=== PATIENT | female | born 1955 | race Caucasian/White ===

== ENCOUNTER → 2023-12-25 | Outpatient (CLI) | payer MEDICARE, OTHER, SELFPAY ==
[2023-12-25 14:22] LABS: Basophils # (Auto) 0.1 Thou/mm3 (0.0-0.2); Basophils % (Auto) 1 % (0-2.5); Eosinophils # (Auto) 0.1 Thou/mm3 (0.0-0.5); Eosinophils % (Auto) 2 % (0-10); Hematocrit 38.5 % (36.0-46.0); Hemoglobin 12.7 g/dL (12.0-16.0); Immature Granulocytes % (Auto) 0 % (0-0); Immature Granulocytes Auto 0.02 Thou/mm3 (0.00-0.00); Lymphocytes # (Auto) 1.7 Thou/mm3 (1.0-4.8); Lymphocytes % (Auto) 36 % (10-50); Mean Corpuscular Hemoglobin 28.1 pg (25.0-35.0); Mean Corpuscular Volume 85 fL (80-100); Monocytes # (Auto) 0.3 Thou/mm3 (0.0-0.8); Monocytes % (Auto) 7 % (0-12); Neutrophils # (Auto) 2.5 Thou/mm3 (1.8-7.7); Neutrophils % (Auto) 54 % (37-80); Nucleated Red Blood Cell % 0 /100 WBC (0); Platelet Count 254 Thou/mm3 (140-440); Red Blood Count 4.52 Miln/mm3 (4.00-5.20); White Blood Count 4.7 Thou/mm3 (3.6-11.0)
[2023-12-25 14:32] LABS: Alanine Aminotransferase 15 U/L (10-49); Albumin, Serum 4.7 gm/dL (3.4-4.8); Albumin/Globulin Ratio 1.7 (1.2-2.2); Alkaline Phosphatase 81 U/L (46-116); Anion Gap 5 (7-16); Aspartate Amino Transferase 13 U/L (0-34); BUN/Creatinine Ratio 27 Ratio (12-20); Bilirubin,Total 0.4 mg/dL (0.3-1.2); Blood Urea Nitrogen 19 mg/dL (9-23); Calcium 9.9 mg/dL (8.3-10.6); Calcium (Corrected) 9.9 mg/dL (8.5-10.1); Carbon Dioxide 28.7 mMol/L (20.0-31.0); Chloride 104 mMol/L (98-107); Creatinine (Component) 0.7 mg/dL (0.6-1.3); Globulin 2.7 gm/dL (2.3-3.5); Glucose 111 mg/dL (74-106); Osmolality,Calculated 278 (275-295); Potassium 3.9 mMol/L (3.4-5.1); Sodium 138 mMol/L (136-145); Total Protein 7.4 gm/dL (5.7-8.2); eGFR > 60 See Note
== END | disposition home or self-care (01) ==
LOC: COPL 13:18
PROVIDERS: PCP Family Medicine; Referring Provider Specialist; Visit Provider Specialist
DX: C18.7 Malignant neoplasm of sigmoid colon (principal); Z51.11 Encounter for antineoplastic chemotherapy
CPT/HCPCS: 36415; 80053; 82378; 85025

== ENCOUNTER → 2024-01-25 | Outpatient (CLI) | payer MEDICARE, OTHER, SELFPAY ==
[2024-01-25 14:53] LABS: Basophils # (Auto) 0.1 Thou/mm3 (0.0-0.2); Basophils % (Auto) 1 % (0-2.5); Eosinophils # (Auto) 0.2 Thou/mm3 (0.0-0.5); Eosinophils % (Auto) 3 % (0-10); Hematocrit 40.3 % (36.0-46.0); Hemoglobin 13.3 g/dL (12.0-16.0); Immature Granulocytes % (Auto) 1 % (0-0); Immature Granulocytes Auto 0.06 Thou/mm3 (0.00-0.00); Lymphocytes # (Auto) 2.2 Thou/mm3 (1.0-4.8); Lymphocytes % (Auto) 38 % (10-50); Mean Corpuscular Hemoglobin 28.8 pg (25.0-35.0); Mean Corpuscular Volume 87 fL (80-100); Monocytes # (Auto) 0.5 Thou/mm3 (0.0-0.8); Monocytes % (Auto) 8 % (0-12); Neutrophils # (Auto) 2.7 Thou/mm3 (1.8-7.7); Neutrophils % (Auto) 49 % (37-80); Nucleated Red Blood Cell % 0 /100 WBC (0); Platelet Count 218 Thou/mm3 (140-440); RDW Standard Deviation 47.6 fL (36.4-46.3); Red Blood Count 4.62 Miln/mm3 (4.00-5.20); White Blood Count 5.6 Thou/mm3 (3.6-11.0)
[2024-01-25 15:02] LABS: Carcinoembryonic Antigen 0.9 ng/mL (0.0-5.0)
[2024-01-25 15:03] LABS: Alanine Aminotransferase 18 U/L (10-49); Albumin, Serum 4.8 gm/dL (3.4-4.8); Albumin/Globulin Ratio 1.7 (1.2-2.2); Alkaline Phosphatase 85 U/L (46-116); Anion Gap 10 (7-16); Aspartate Amino Transferase 17 U/L (0-34); BUN/Creatinine Ratio 16 Ratio (12-20); Bilirubin,Total 0.4 mg/dL (0.3-1.2); Blood Urea Nitrogen 13 mg/dL (9-23); Calcium 9.9 mg/dL (8.3-10.6); Calcium (Corrected) 9.9 mg/dL (8.5-10.1); Carbon Dioxide 25.9 mMol/L (20.0-31.0); Chloride 104 mMol/L (98-107); Creatinine (Component) 0.8 mg/dL (0.6-1.3); Globulin 2.8 gm/dL (2.3-3.5); Glucose 83 mg/dL (74-106); Osmolality,Calculated 278 (275-295); Sodium 140 mMol/L (136-145); Total Protein 7.6 gm/dL (5.7-8.2); eGFR > 60 See Note
== END | disposition home or self-care (01) ==
LOC: COPL 13:30
PROVIDERS: PCP Family Medicine; Referring Provider Specialist; Visit Provider Specialist
DX: C18.7 Malignant neoplasm of sigmoid colon (principal); Z51.11 Encounter for antineoplastic chemotherapy
CPT/HCPCS: 36415; 80053; 82378; 85025

== ENCOUNTER → 2024-02-19 | Outpatient (CLI) | payer MEDICARE, OTHER, SELFPAY ==
[2024-02-19 11:30] LABS: Basophils # (Auto) 0.1 Thou/mm3 (0.0-0.2); Basophils % (Auto) 1 % (0-2.5); Eosinophils # (Auto) 0.1 Thou/mm3 (0.0-0.5); Eosinophils % (Auto) 2 % (0-10); Hematocrit 40.5 % (36.0-46.0); Hemoglobin 13.4 g/dL (12.0-16.0); Immature Granulocytes % (Auto) 1 % (0-0); Immature Granulocytes Auto 0.03 Thou/mm3 (0.00-0.00); Lymphocytes # (Auto) 2.3 Thou/mm3 (1.0-4.8); Lymphocytes % (Auto) 45 % (10-50); Mean Corpuscular HGB Conc 33.1 g/dl (31.0-37.0); Mean Corpuscular Hemoglobin 29.5 pg (25.0-35.0); Mean Corpuscular Volume 89 fL (80-100); Monocytes # (Auto) 0.4 Thou/mm3 (0.0-0.8); Monocytes % (Auto) 8 % (0-12); Neutrophils # (Auto) 2.2 Thou/mm3 (1.8-7.7); Neutrophils % (Auto) 44 % (37-80); Nucleated Red Blood Cell % 0 /100 WBC (0); Platelet Count 221 Thou/mm3 (140-440); RDW Standard Deviation 46.1 fL (36.4-46.3); Red Blood Count 4.54 Miln/mm3 (4.00-5.20); White Blood Count 5.1 Thou/mm3 (3.6-11.0)
[2024-02-19 11:56] LABS: Alanine Aminotransferase 21 U/L (10-49); Albumin, Serum 4.8 gm/dL (3.4-4.8); Albumin/Globulin Ratio 1.8 (1.2-2.2); Alkaline Phosphatase 85 U/L (46-116); Anion Gap 6 (7-16); Aspartate Amino Transferase 19 U/L (0-34); BUN/Creatinine Ratio 20 Ratio (12-20); Bilirubin,Total 0.3 mg/dL (0.3-1.2); Blood Urea Nitrogen 16 mg/dL (9-23); Calcium 9.9 mg/dL (8.3-10.6); Calcium (Corrected) 9.9 mg/dL (8.5-10.1); Carbon Dioxide 24.8 mMol/L (20.0-31.0); Chloride 108 mMol/L (98-107); Creatinine (Component) 0.8 mg/dL (0.6-1.3); Globulin 2.7 gm/dL (2.3-3.5); Glucose 96 mg/dL (74-106); Osmolality,Calculated 278 (275-295); Potassium 4.4 mMol/L (3.4-5.1); Sodium 139 mMol/L (136-145); Total Protein 7.5 gm/dL (5.7-8.2); eGFR > 60 See Note
[2024-02-19 12:01] LABS: Carcinoembryonic Antigen 0.7 ng/mL (0.0-5.0)
== END | disposition home or self-care (01) ==
LOC: COPL 10:45
PROVIDERS: PCP Family Medicine; Referring Provider Specialist; Visit Provider Specialist
DX: C18.7 Malignant neoplasm of sigmoid colon (principal); Z51.11 Encounter for antineoplastic chemotherapy
CPT/HCPCS: 36415; 80053; 82378; 85025

== ENCOUNTER → 2024-03-18 | Outpatient (CLI) | payer MEDICARE, OTHER, SELFPAY ==
[2024-03-18 11:24] LABS: Basophils # (Auto) 0.1 Thou/mm3 (0.0-0.2); Basophils % (Auto) 1 % (0-2.5); Eosinophils # (Auto) 0.1 Thou/mm3 (0.0-0.5); Eosinophils % (Auto) 2 % (0-10); Hematocrit 39.7 % (36.0-46.0); Hemoglobin 13.2 g/dL (12.0-16.0); Immature Granulocytes % (Auto) 0 % (0-0); Immature Granulocytes Auto 0.02 Thou/mm3 (0.00-0.00); Lymphocytes # (Auto) 1.9 Thou/mm3 (1.0-4.8); Lymphocytes % (Auto) 33 % (10-50); Mean Corpuscular HGB Conc 33.2 g/dl (31.0-37.0); Mean Corpuscular Hemoglobin 29.6 pg (25.0-35.0); Mean Corpuscular Volume 89 fL (80-100); Monocytes # (Auto) 0.5 Thou/mm3 (0.0-0.8); Monocytes % (Auto) 8 % (0-12); Neutrophils # (Auto) 3.2 Thou/mm3 (1.8-7.7); Neutrophils % (Auto) 56 % (37-80); Nucleated Red Blood Cell % 0 /100 WBC (0); Platelet Count 310 Thou/mm3 (140-440); RDW Standard Deviation 45.2 fL (36.4-46.3); Red Blood Count 4.46 Miln/mm3 (4.00-5.20); White Blood Count 5.8 Thou/mm3 (3.6-11.0)
[2024-03-18 11:28] LABS: Carcinoembryonic Antigen 0.9 ng/mL (0.0-5.0)
[2024-03-18 11:37] LABS: Alanine Aminotransferase 26 U/L (10-49); Albumin, Serum 4.9 gm/dL (3.4-4.8); Albumin/Globulin Ratio 1.8 (1.2-2.2); Alkaline Phosphatase 100 U/L (46-116); Anion Gap 8 (7-16); Aspartate Amino Transferase 18 U/L (0-34); BUN/Creatinine Ratio 24 Ratio (12-20); Bilirubin,Total 0.4 mg/dL (0.3-1.2); Blood Urea Nitrogen 19 mg/dL (9-23); Calcium 10.2 mg/dL (8.3-10.6); Calcium (Corrected) 10.2 mg/dL (8.5-10.1); Carbon Dioxide 27.4 mMol/L (20.0-31.0); Chloride 104 mMol/L (98-107); Creatinine (Component) 0.8 mg/dL (0.6-1.3); Globulin 2.8 gm/dL (2.3-3.5); Glucose 92 mg/dL (74-106); Osmolality,Calculated 279 (275-295); Potassium 4.4 mMol/L (3.4-5.1); Sodium 139 mMol/L (136-145); Total Protein 7.7 gm/dL (5.7-8.2); eGFR > 60 See Note
== END | disposition home or self-care (01) ==
LOC: COPL 10:33
PROVIDERS: PCP Family Medicine; Referring Provider Specialist; Visit Provider Specialist
DX: C18.7 Malignant neoplasm of sigmoid colon (principal); Z51.11 Encounter for antineoplastic chemotherapy
CPT/HCPCS: 36415; 80053; 82378; 85025

== ENCOUNTER → 2024-04-08 | Outpatient (CLI) | payer MEDICARE, OTHER, SELFPAY ==
[2024-04-08 17:33] LABS: Basophils # (Auto) 0.1 Thou/mm3 (0.0-0.2); Basophils % (Auto) 1 % (0-2.5); Eosinophils # (Auto) 0.1 Thou/mm3 (0.0-0.5); Eosinophils % (Auto) 2 % (0-10); Hematocrit 38.3 % (36.0-46.0); Hemoglobin 12.8 g/dL (12.0-16.0); Immature Granulocytes % (Auto) 1 % (0-0); Immature Granulocytes Auto 0.05 Thou/mm3 (0.00-0.00); Lymphocytes % (Auto) 29 % (10-50); Mean Corpuscular HGB Conc 33.4 g/dl (31.0-37.0); Mean Corpuscular Hemoglobin 29.4 pg (25.0-35.0); Mean Corpuscular Volume 88 fL (80-100); Monocytes # (Auto) 0.4 Thou/mm3 (0.0-0.8); Monocytes % (Auto) 6 % (0-12); Neutrophils # (Auto) 4.3 Thou/mm3 (1.8-7.7); Neutrophils % (Auto) 63 % (37-80); Nucleated Red Blood Cell % 0 /100 WBC (0); Platelet Count 190 Thou/mm3 (140-440); RDW Standard Deviation 44.9 fL (36.4-46.3); Red Blood Count 4.35 Miln/mm3 (4.00-5.20); White Blood Count 6.8 Thou/mm3 (3.6-11.0)
[2024-04-08 17:47] LABS: Carcinoembryonic Antigen < 0.5 ng/mL (0.0-5.0)
[2024-04-08 17:50] LABS: Alanine Aminotransferase 29 U/L (10-49); Albumin, Serum 4.5 gm/dL (3.4-4.8); Albumin/Globulin Ratio 1.7 (1.2-2.2); Alkaline Phosphatase 109 U/L (46-116); Anion Gap 10 (7-16); Aspartate Amino Transferase 24 U/L (0-34); BUN/Creatinine Ratio 19 Ratio (12-20); Bilirubin,Total 0.3 mg/dL (0.3-1.2); Blood Urea Nitrogen 15 mg/dL (9-23); Carbon Dioxide 25.2 mMol/L (20.0-31.0); Chloride 108 mMol/L (98-107); Creatinine (Component) 0.8 mg/dL (0.6-1.3); Globulin 2.7 gm/dL (2.3-3.5); Glucose 86 mg/dL (74-106); Osmolality,Calculated 284 (275-295); Potassium 4.5 mMol/L (3.4-5.1); Sodium 143 mMol/L (136-145); Total Protein 7.2 gm/dL (5.7-8.2); eGFR > 60 See Note
== END | disposition home or self-care (01) ==
LOC: COPL 16:33
PROVIDERS: PCP Family Medicine; Referring Provider Specialist; Visit Provider Specialist
DX: C18.7 Malignant neoplasm of sigmoid colon (principal)
CPT/HCPCS: 36415; 80053; 82378; 85025

== ENCOUNTER → 2024-05-06 | Outpatient (CLI) | payer MEDICARE, OTHER, SELFPAY ==
[2024-05-06 12:01] LABS: Basophils # (Auto) 0.1 Thou/mm3 (0.0-0.2); Basophils % (Auto) 1 % (0-2.5); Eosinophils # (Auto) 0.2 Thou/mm3 (0.0-0.5); Eosinophils % (Auto) 2 % (0-10); Hematocrit 40.4 % (36.0-46.0); Hemoglobin 13.3 g/dL (12.0-16.0); Immature Granulocytes % (Auto) 0 % (0-0); Immature Granulocytes Auto 0.02 Thou/mm3 (0.00-0.00); Lymphocytes # (Auto) 2.1 Thou/mm3 (1.0-4.8); Lymphocytes % (Auto) 34 % (10-50); Mean Corpuscular HGB Conc 32.9 g/dl (31.0-37.0); Mean Corpuscular Hemoglobin 29.7 pg (25.0-35.0); Mean Corpuscular Volume 90 fL (80-100); Monocytes # (Auto) 0.5 Thou/mm3 (0.0-0.8); Monocytes % (Auto) 8 % (0-12); Neutrophils # (Auto) 3.4 Thou/mm3 (1.8-7.7); Neutrophils % (Auto) 55 % (37-80); Nucleated Red Blood Cell % 0 /100 WBC (0); Platelet Count 307 Thou/mm3 (140-440); Red Blood Count 4.48 Miln/mm3 (4.00-5.20); White Blood Count 6.2 Thou/mm3 (3.6-11.0)
[2024-05-06 12:15] LABS: Alanine Aminotransferase 21 U/L (10-49); Albumin, Serum 4.4 gm/dL (3.4-4.8); Albumin/Globulin Ratio 1.5 (1.2-2.2); Alkaline Phosphatase 100 U/L (46-116); Anion Gap 10 (7-16); Aspartate Amino Transferase 10 U/L (0-34); BUN/Creatinine Ratio 19 Ratio (12-20); Bilirubin,Total 0.3 mg/dL (0.3-1.2); Blood Urea Nitrogen 15 mg/dL (9-23); Calcium 9.4 mg/dL (8.3-10.6); Calcium (Corrected) 9.4 mg/dL (8.5-10.1); Carbon Dioxide 23.5 mMol/L (20.0-31.0); Chloride 107 mMol/L (98-107); Creatinine (Component) 0.8 mg/dL (0.6-1.3); Globulin 2.9 gm/dL (2.3-3.5); Glucose 98 mg/dL (74-106); Osmolality,Calculated 280 (275-295); Potassium 4.1 mMol/L (3.4-5.1); Sodium 140 mMol/L (136-145); Total Protein 7.3 gm/dL (5.7-8.2); eGFR > 60 See Note
== END | disposition home or self-care (01) ==
LOC: COPL 11:23
PROVIDERS: PCP Family Medicine; Referring Provider Specialist; Visit Provider Specialist
DX: C18.7 Malignant neoplasm of sigmoid colon (principal); Z51.11 Encounter for antineoplastic chemotherapy
CPT/HCPCS: 36415; 80053; 85025

== ENCOUNTER → 2024-05-27 | Outpatient (CLI) | payer MEDICARE, OTHER, SELFPAY ==
[2024-05-27 14:20] LABS: Basophils # (Auto) 0.1 Thou/mm3 (0.0-0.2); Basophils % (Auto) 1 % (0-2.5); Eosinophils # (Auto) 0.1 Thou/mm3 (0.0-0.5); Eosinophils % (Auto) 1 % (0-10); Hemoglobin 13.2 g/dL (12.0-16.0); Immature Granulocytes % (Auto) 0 % (0-0); Immature Granulocytes Auto 0.03 Thou/mm3 (0.00-0.00); Lymphocytes % (Auto) 29 % (10-50); Mean Corpuscular Hemoglobin 29.3 pg (25.0-35.0); Mean Corpuscular Volume 89 fL (80-100); Monocytes # (Auto) 0.4 Thou/mm3 (0.0-0.8); Monocytes % (Auto) 6 % (0-12); Neutrophils # (Auto) 4.3 Thou/mm3 (1.8-7.7); Neutrophils % (Auto) 63 % (37-80); Nucleated Red Blood Cell % 0 /100 WBC (0); Platelet Count 194 Thou/mm3 (140-440); RDW Standard Deviation 45.7 fL (36.4-46.3); White Blood Count 6.8 Thou/mm3 (3.6-11.0)
[2024-05-27 14:34] LABS: Alanine Aminotransferase 25 U/L (10-49); Albumin, Serum 4.6 gm/dL (3.4-4.8); Albumin/Globulin Ratio 1.5 (1.2-2.2); Alkaline Phosphatase 115 U/L (46-116); Anion Gap 10 (7-16); Aspartate Amino Transferase 21 U/L (0-34); BUN/Creatinine Ratio 15 Ratio (12-20); Bilirubin,Total 0.4 mg/dL (0.3-1.2); Blood Urea Nitrogen 12 mg/dL (9-23); Calcium 9.7 mg/dL (8.3-10.6); Calcium (Corrected) 9.7 mg/dL (8.5-10.1); Carbon Dioxide 24.5 mMol/L (20.0-31.0); Carcinoembryonic Antigen 0.7 ng/mL (0.0-5.0); Chloride 104 mMol/L (98-107); Creatinine (Component) 0.8 mg/dL (0.6-1.3); Glucose 93 mg/dL (74-106); Osmolality,Calculated 275 (275-295); Sodium 138 mMol/L (136-145); Total Protein 7.6 gm/dL (5.7-8.2); eGFR > 60 See Note
== END | disposition home or self-care (01) ==
LOC: COPL 13:18
PROVIDERS: PCP Family Medicine; Referring Provider Specialist; Visit Provider Specialist
DX: C18.7 Malignant neoplasm of sigmoid colon (principal)
CPT/HCPCS: 36415; 80053; 82378; 85025

== ENCOUNTER → 2024-06-03 | Outpatient (CLI) | payer MEDICARE, OTHER, SELFPAY ==
[2024-06-03 13:28] LABS: Basophils # (Auto) 0.1 Thou/mm3 (0.0-0.2); Basophils % (Auto) 2 % (0-2.5); Eosinophils # (Auto) 0.1 Thou/mm3 (0.0-0.5); Eosinophils % (Auto) 3 % (0-10); Hematocrit 41.6 % (36.0-46.0); Hemoglobin 13.5 g/dL (12.0-16.0); Immature Granulocytes % (Auto) 0 % (0-0); Immature Granulocytes Auto 0.01 Thou/mm3 (0.00-0.00); Lymphocytes % (Auto) 39 % (10-50); Mean Corpuscular HGB Conc 32.5 g/dl (31.0-37.0); Mean Corpuscular Hemoglobin 29.5 pg (25.0-35.0); Mean Corpuscular Volume 91 fL (80-100); Monocytes # (Auto) 0.3 Thou/mm3 (0.0-0.8); Monocytes % (Auto) 6 % (0-12); Neutrophils # (Auto) 2.6 Thou/mm3 (1.8-7.7); Neutrophils % (Auto) 51 % (37-80); Nucleated Red Blood Cell % 0 /100 WBC (0); Platelet Count 296 Thou/mm3 (140-440); RDW Standard Deviation 46.7 fL (36.4-46.3); Red Blood Count 4.58 Miln/mm3 (4.00-5.20); White Blood Count 5.1 Thou/mm3 (3.6-11.0)
== END | disposition home or self-care (01) ==
LOC: COPL 11:31
PROVIDERS: PCP Family Medicine; Referring Provider Specialist; Visit Provider Specialist
DX: C18.7 Malignant neoplasm of sigmoid colon (principal); Z51.11 Encounter for antineoplastic chemotherapy
CPT/HCPCS: 36415; 85025

== ENCOUNTER → 2024-07-15 | Outpatient (CLI) | payer MEDICARE, OTHER, SELFPAY ==
[2024-07-15 11:20] LABS: Basophils % (Auto) 1 % (0-2.5); Eosinophils # (Auto) 0.2 Thou/mm3 (0.0-0.5); Eosinophils % (Auto) 3 % (0-10); Hematocrit 40.5 % (36.0-46.0); Hemoglobin 13.4 g/dL (12.0-16.0); Immature Granulocytes % (Auto) 0 % (0-0); Immature Granulocytes Auto 0.01 Thou/mm3 (0.00-0.00); Lymphocytes # (Auto) 2.1 Thou/mm3 (1.0-4.8); Lymphocytes % (Auto) 35 % (10-50); Mean Corpuscular HGB Conc 33.1 g/dl (31.0-37.0); Mean Corpuscular Hemoglobin 29.1 pg (25.0-35.0); Mean Corpuscular Volume 88 fL (80-100); Monocytes # (Auto) 0.4 Thou/mm3 (0.0-0.8); Monocytes % (Auto) 6 % (0-12); Neutrophils # (Auto) 3.3 Thou/mm3 (1.8-7.7); Neutrophils % (Auto) 55 % (37-80); Nucleated Red Blood Cell % 0 /100 WBC (0); Platelet Count 223 Thou/mm3 (140-440); RDW Standard Deviation 43.6 fL (36.4-46.3); Red Blood Count 4.61 Miln/mm3 (4.00-5.20); White Blood Count 6.1 Thou/mm3 (3.6-11.0)
[2024-07-15 11:42] LABS: Albumin, Serum 4.4 gm/dL (3.4-4.8); Anion Gap 11 (7-16); BUN/Creatinine Ratio 14 Ratio (12-20); Blood Urea Nitrogen 11 mg/dL (9-23); Carbon Dioxide 24.4 mMol/L (20.0-31.0); Chloride 109 mMol/L (98-107); Creatinine (Component) 0.8 mg/dL (0.6-1.3); Glucose 110 mg/dL (74-106); Osmolality,Calculated 287 (275-295); Phosphorous 3.1 mg/dL (2.4-5.1); Sodium 144 mMol/L (136-145); eGFR > 60 See Note
== END | disposition home or self-care (01) ==
LOC: COPL 10:09
PROVIDERS: PCP Family Medicine; Referring Provider Specialist; Visit Provider Specialist
DX: C18.7 Malignant neoplasm of sigmoid colon (principal); Z51.11 Encounter for antineoplastic chemotherapy
CPT/HCPCS: 36415; 80069; 85025

== ENCOUNTER → 2024-07-25 | Outpatient (CLI) | payer MEDICARE, OTHER, SELFPAY ==
--- NOTE | 2024-07-25 10:30 | XR_ITS ---
Examination: CT chest with intravenous contrast CT abdomen with intravenous contrast CT pelvis with intravenous contrast CT chest, without intravenous contrast. CT abdomen, without intravenous contrast. CT pelvis, without intravenous contrast. 2-D sagittal and coronal reconstructions. 3-D reconstructions. Date and time of exam:July 25, 2024 1220 hours Diagnosis malignant neoplasm sigmoid colon one year ago, restaging CTDI vol (mgy) 13.5 DLP (MGycm)983 Technique: Multiple CT images, 3.0 mm slice thickness, obtained chest, abdomen, pelvis, with the high-resolution 64 slice scanner.., Pre and post intravenous ministration 60 cc Isovue-370 Sagittal and coronal 2-D reconstructions are obtained. 3-D reconstructions Low dose protocols were performed. One or more of the following dose reduction techniques were used; automated exposure control, adjustment of the mA and/or KV according to patient size, use of iterative reconstruction technique. Findings: No thoracic aortic aneurysm dilatation No pulmonary artery filling defects Moderate calcification left anterior descending coronary artery No paratracheal tracheobronchial or bronchopulmonary adenopathy No pneumonia or pulmonary edema or disease or pulmonary mass lesions 16mm right lobe 4 mm left lobe liver cyst No enhancing solid liver lesions No gallstones Spleen not enlarged No pancreatic mass No abdominal or pelvic lymphadenopathy No hydronephrosis Left ileostomy Normal appendix Mild free fluid in the pelvis Absent uterus Moderate osteopenia IMPRESSION: No mediastinal lymphadenopathy No pneumonia, pulmonary edema or pulmonary mass lesions No abdominal or pelvic lymphadenopathy Mild free fluid in the pelvis, recommend pelvic sonography follow-up
== END | disposition home or self-care (01) ==
LOC: SCAT 10:09
PROVIDERS: PCP Family Medicine; Referring Provider Specialist; Visit Provider Specialist
DX: N94.9 Unspecified condition associated with female genital organs and menstrual cycle (principal); C18.7 Malignant neoplasm of sigmoid colon
CPT/HCPCS: 71270; 74178; A4649; Q9967

== ENCOUNTER → 2024-09-01 | Outpatient (CLI) | payer MEDICARE, OTHER, SELFPAY ==
--- NOTE | 2024-09-01 14:00 | XR_ITS ---
EXAMINATION: PET/CT FUSION SKULL TO THIGH EXAM DATE AND TIME: September 01, 2024 1447 hours Comparison PET/CT scan September 17, 2023 INDICATIONS: Diagnosis malignant neoplasm sigmoid colon post treatment restaging CTDI:vol (mGy) 4.44 DLP: (mGycm) 105.56 PROCEDURE: 15.44 mCi FDG was administered intravenously To allow for distribution and uptake of radiotracer, the patient was allowed to rest quietly in a shielded room. Imaging was performed on an integrated 16-slice PET/CT scanner, with scanning from the skull base to the mid thigh. Serum blood glucose at the time of the injection was measured 96 mg/dL. CT scanning was performed without oral or intravenous contrast material. FINDINGS: Head and Neck: There is no william hypermetabolism in the neck. The visualized portions of the brain are normal in appearance on CT. Chest: There is no william hypermetabolism in the chest. There are no pulmonary nodules. Abdomen and Pelvis: There is no william hypermetabolism in retroperitoneal or pelvic chains. The spleen is normal in size and FDG avidity. Musculoskeletal: Marrow uptake is within normal range. IMPRESSION: No interval metastatic disease
== END | disposition home or self-care (01) ==
PROVIDERS: PCP Family Medicine; Referring Provider Specialist; Visit Provider Specialist
DX: C18.7 Malignant neoplasm of sigmoid colon (principal)
CPT/HCPCS: 78815; A9552

== ENCOUNTER 2024-09-08 08:49 | Outpatient (RCR) | payer MEDICARE, OTHER, SELFPAY ==
--- NOTE | 2024-09-08 10:43 | CTCFLWUP_ITS ---
[facility] [address] [place], [place] [address] FOLLOW-UP NOTE Date: 09/08/2024 MR#: [id number] Name: DAYRON FUENTES : 1955 Dx: C18.7 Malignant neoplasm of sigmoid colon Identification. 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 07/31/2023 Postop PET 09/17/2023 negative for mets disease. Received postop chemo under Dr. Mckeon's direction. Patient reportedly had various side effects and had 11 and half cycles of chemo total. Posttreatment PET 09/01/2024 showed no interval disease. Spoke to patient about possible benefit of local radiation therapy for the T4b disease and shared an article from up-to-date about this matter. Course of treatment side effects explained. Patient unclear about whether she wants treatment or not but states that she will get back with me within the next 3 months. Cc: Zurdo Ochoa MD Electronically signed by: Jefe Nicholas M.D. 09/08/2024 10:40 AM
== END 2024-09-22 23:59 | disposition home or self-care (01) ==
LOC: SCTC 08:49
PROVIDERS: PCP Family Medicine; Referring Provider Radiology Therapeutic Radiology; Visit Provider Radiology Therapeutic Radiology
DX: C18.7 Malignant neoplasm of sigmoid colon (principal); Z90.49 Acquired absence of other specified parts of digestive tract; Z92.21 Personal history of antineoplastic chemotherapy
CPT/HCPCS: 99213; G0463

== ENCOUNTER → 2024-11-29 | Outpatient (CLI) | payer MEDICARE, OTHER, SELFPAY ==
[2024-11-29 11:06] LABS: Basophils # (Auto) 0.0 Thou/mm3 (0.0-0.2); Basophils % (Auto) 1 % (0-2.5); Eosinophils # (Auto) 0.1 Thou/mm3 (0.0-0.5); Eosinophils % (Auto) 3 % (0-10); Hematocrit 38.4 % (36.0-46.0); Hemoglobin 12.5 g/dL (12.0-16.0); Immature Granulocytes Auto 0.01 Thou/mm3 (0.00-0.00); Lymphocytes # (Auto) 2.0 Thou/mm3 (1.0-4.8); Lymphocytes % (Auto) 41 % (10-50); Mean Corpuscular HGB Conc 32.6 g/dl (31.0-37.0); Mean Corpuscular Hemoglobin 28.8 pg (25.0-35.0); Mean Corpuscular Volume 89 fL (80-100); Monocytes # (Auto) 0.3 Thou/mm3 (0.0-0.8); Monocytes % (Auto) 6 % (0-12); Neutrophils # (Auto) 2.3 Thou/mm3 (1.8-7.7); Neutrophils % (Auto) 49 % (37-80); Nucleated Red Blood Cell # 0.00 Thou/mm3 (0.00-0.00); Nucleated Red Blood Cell % 0 /100 WBC (0); Platelet Count 192 Thou/mm3 (140-440); RDW Standard Deviation 43.3 fL (36.4-46.3); Red Blood Count 4.34 Miln/mm3 (4.00-5.20); White Blood Count 4.8 Thou/mm3 (3.6-11.0)
[2024-11-29 11:19] LABS: Alanine Aminotransferase 12 U/L (10-49); Albumin, Serum 4.4 gm/dL (3.4-4.8); Albumin/Globulin Ratio 1.6 (1.2-2.2); Alkaline Phosphatase 72 U/L (46-116); Anion Gap 9 (7-16); Aspartate Amino Transferase 17 U/L (0-34); BUN/Creatinine Ratio 14 Ratio (12-20); Bilirubin,Total 0.5 mg/dL (0.3-1.2); Blood Urea Nitrogen 11 mg/dL (9-23); Calcium 9.5 mg/dL (8.3-10.6); Calcium (Corrected) 9.5 mg/dL (8.5-10.1); Carbon Dioxide 24.9 mMol/L (20.0-31.0); Chloride 107 mMol/L (98-107); Creatinine (Component) 0.8 mg/dL (0.6-1.3); Globulin 2.8 gm/dL (2.3-3.5); Glucose 97 mg/dL (74-106); Osmolality,Calculated 280 (275-295); Potassium 4.1 mMol/L (3.4-5.1); Sodium 141 mMol/L (136-145); Total Protein 7.2 gm/dL (5.7-8.2); eGFR > 60 See Note
[2024-11-29 11:22] LABS: Carcinoembryonic Antigen 0.5 ng/mL (0.0-5.0)
== END | disposition home or self-care (01) ==
LOC: COPL 10:28
PROVIDERS: PCP Family Medicine; Referring Provider Specialist; Visit Provider Specialist
DX: C18.7 Malignant neoplasm of sigmoid colon (principal)
CPT/HCPCS: 36415; 80053; 82378; 85025

== ENCOUNTER 2024-12-05 12:53 | Inpatient (IN) | payer MEDICARE, OTHER, SELFPAY ==
[2024-12-05] VITALS (8 sets, daily range): BP systolic 117–159; BP diastolic 53–77; PULSE 54–65; RESP 13–97; TEMP 36.1–36.7; O2SAT 95–96; BMI 24.0
--- NOTE | 2024-12-05 | XR_ITS ---
Examinations: MRI Brain without intravenous contrast. MRA brain without intravenous contrast. MRA carotids without intravenous contrast 3-D vascular reconstructions Date and time of exam: December 05, 2024, 1648 hours INDICATIONS: Diagnosis malignant neoplasm of colon, stroke alert today, onset focal neurologic deficit Technique: Multiple axial and sagittal images of the brain have been obtained MRA brain carotid images without contrast obtained, including 3-D postprocessing, vascular maximum intensity projection images Findings: Sellaturcica is not enlarged. The optic chiasm and infundibular stalk are not remarkable. Prepontine and interpeduncular cisterns are not enlarged. No localized enlargement of the medulla or lakia. Fourth ventricle and cerebellar tonsils normal in position. Subacute hemorrhage is not seen. Fourth ventricle is midline. Mass in the cerebellopontine angle region is not evident. 7th and 8th nerve complexes exhibits symmetry. Globes are symmetrical with no retro-orbital mass. Increased white matter signal mild Diffusion-weighted images demonstrate no focus of restricted diffusion Mass-effect upon the ventricular system is not identified. MRA carotid images no significant carotid stenoses. MRA brain images no large vessel occlusions Impression: Negative for acute hemorrhage mass effect or midline shift No acute infarct No large vessel cerebral occlusions Brain MRI post contrast would best assess for cerebral metastatic disease
--- NOTE | 2024-12-05 12:59 | PC.NURSE ---
tele neuro cart activated with a conf # of [id number]
--- NOTE | 2024-12-05 13:00 | PC.LAC ---
Dr. Caruso bedside assessing pt., talking with pt.
--- NOTE | 2024-12-05 13:03 | EKG_ITS ---
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
--- NOTE | 2024-12-05 13:04 | PC.NURSE ---
Pt. taken to CT via david.
--- NOTE | 2024-12-05 13:04 | EDNOTE_ITS ---
Neuro Symptoms Deficit-RME/HPI General Chief Complaint: Neuro Symptoms/Deficit Stated Complaint: NUMBNESS RIGHT ARM,SLURRED SPEECH AT 1230 Time Seen by Provider: 12/05/24 13:03 Arrival date/time: 12/05/24 12:53 RME / HPI RME / HPI Narrative: 69 year old female with history of colon CA s/p hemocholectomy with colostomy, currently in remission, presents to the ED for evaluation of slurred speech, headache, and right arm numbness beginning at 12:30PM shortly after getting her port flushed. Patient states the headache is located most to the left frontal area, described as aching in sensation, rating as moderate. No other associated symptoms reported. Denies any recent illness. Denies changes in vision. Related Data Previous Rx's ?Medication ?Instructions ?Recorded ascorbic acid (vitamin C) 250 mg 500 mg (2 x 250 mg) P O BID #60 tabs 08/05/23 tablet (Vitamin C) docusate sodium 100 mg capsule 100 mg PO BID #60 caps 08/05/23 hydrocodone 5 mg-acetaminophen 325 1 tab PO Q6HR PRN p ain (scale 08/05/23 mg tablet score 7-10) #20 tabs zinc sulfate 50 mg zinc (220 mg) 220 mg (4.4 x 50 mg z inc (220 mg)) 08/05/23 capsule PO QDAY #30 caps Allergies Allergy/AdvReac Type Severity Reaction Status Date / Time No Known Allergies Allergy Verified 12/05/24 12:57 Review of Systems Review of Systems Systems Reviewed: All systems reviewed, normal except as documented Past Medical History Past Medical History GASTROINTESTINAL: Positive Colorectal Cancer OTHER HISTORY: Positive Cancer and Colorectal Cancer Family History FAMILY HISTORY: Positive Family Cardiac Disorders, Family Gastrointestinal Problems, Family Cancer and Family Surgery (open heart surgery (mom)) Social History SMOKING STATUS: Never smoker SECOND HAND EXPOSURE: No SUBSTANCE USE: marijuana ED Exam Narrative Physical exam: Constitutional: Awake, alert, nontoxic HEENT: Normocephalic, atraumatic, extraocular movements intact. Neck: Supple CV: Regular rate and rhythm, no murmurs/rubs/gallops Lungs: Clear to auscultation BL, no respiratory distress. Abd: Soft, NT, ND, no HSM noted to palpation Extremities: No deformities, no edema noted Neuro: AAOx3, CN 2-12 GIBL, diminished sensation to the right upper extremity, minimally slurring of speech Skin: Warm, dry, intact Course Course Course Narrative: 1255h: Stroke alert activated by accounts payable assistant. 1257h: Patient evaluated in triage and sent to CT. 1324h: Spoke w tele-neuro Dr. Cazares about patient. She has evaluated patient in radiology. At this point symptoms have resolved. Discussed TIA with patient. CT angio is pending at this point. Does recommend admission for further workup and rule out stroke. Recommends aspirin. 1525h: Patients scans are negative. Per discussion with teleneurologist, will call hospitalist team C for admission for further stroke work-up. Quality Measures Suspected type of Stroke: TIA Last known well (date): 12/05/24 Last known well (time): 12:30 Tenecteplase given: Reason(s) TPA not given: Stroke severity too mild (non-disabling) not given stroke Orders Category Date Time Status Bedside Blood Glucose NOW Care 12/05/24 13:03 Active Manager Military NOW Care 12/05/24 13:03 Active Continuous Pulse Oximetry NOW Care 12/05/24 13:03 Completed EKG (ED ONLY) *Do not use* NOW Care 12/05/24 13:03 Completed Insert IV NOW Care 12/05/24 13:03 Active NIH Stroke Scale now Care 12/05/24 13:03 Active NPO NOW Care 12/05/24 13:03 Active Nurse Swallow Screen x1 Care 12/05/24 13:03 Active Consult to Neurology / Tele-Neurology Routine Cons 12/05/24 13:[address] angio stroke protocol Stat Exams 12/05/24 13:[address] stroke protocol Stat Exams 12/05/24 13:03 Completed EKG (ED Only) Stat Exams 12/05/24 13:03 Draft XR chest 1V portable Stat Exams 12/05/24 13:03 Completed CBC Stat Lab 12/05/24 13:00 Completed Comprehensive Metabolic Panel Stat Lab 12/05/24 13:00 Completed Drug Screen,Urine Stat Lab 12/05/24 13:03 Ordered Magnesium Stat Lab 12/05/24 13:00 Completed Partial Thromboplastin Time Stat Lab 12/05/24 13:00 Completed Prothrombin Time with INR Stat Lab 12/05/24 13:00 Completed Troponin I Stat Lab 12/05/24 13:00 Completed Urinalysis, C/S if Indicated Stat Lab 12/05/24 13:03 Ordered Aspirin Med 12/05/24 13:27 Discontinued 325 mg PO X1 ONE Vital Signs Vital signs: Vital Signs Temperature 98.1 F 12/05/24 13:30 Pulse Rate 63 12/05/24 13:30 Respiratory Rate 14 12/05/24 13:30 Blood Pressure 159/53 H 12/05/24 13:30 Pulse Oximetry (%) 96 12/05/24 13:30 Oxygen Delivery Method Room Air 12/05/24 13:30 Pulse ox is 96% on room air which is adequate. Neuro Symptoms / Deficit MDM Narrative MDM Narrative:: Renea Parks am scribing for and in the presence of Dr. Caruso. Patient data External records reviewed:: [facility] previous records Clinical information provided by:: patient Social determinants that could affect healthcare access:: none Patient has the following chronic illnesses:: colon CA s/p hemocholectomy with colostomy, currently in remission How is presenting disease/condition affected by chronic disease/condition?: uneffected by Evaluation data The following diagnostics were reviewed and interpreted by me:: lab results, radiology exam(s) and EKG tracing(s) (EKG @ 13:38p. Normal sinus rhythm, rate 65, no STEMI. ) Lab and/or radiology exams considered but not ordered:: None Interpretation Summary: Ordering Physician: Laurie Caruso MD Date of Service: 12/05/24 Procedure(s): CT stroke protocol Accession Number(s): [id number] cc: Armando Gee MD; Laurie Caruso MD~ Examination: CT brain head without contrast. 2-D sagittal coronal reconstructions Date and time of exam: December 22, 2024, 1308 hours INDICATIONS: Stroke alert, onset focal neurologic deficit today CTDI: vol (mGy): 48.5 DLP: (mGycm): 927 Technique: Multiple CT axial sections of the brain have been obtained, 5 mm slice thickness. Contrast has not been administered. 2-D sagittal, coronal reconstructions have been obtained Low dose protocols were performed. One or more of the following dose reduction techniques were used; automated exposure control, adjustment of the mA and/or KV according to patient size, use of iterative reconstruction technique. Findings: No significant ventricular enlargement. Intra-axial or extra-axial hemorrhage density is not seen. No mass effect or midline shift Basal cisterns are not remarkable. Fourth ventricle is midline. Cranial vault intact. Prominent ethmoid sinusitis Impression: Negative for acute hemorrhage, mass effect or midline shift Dictated By: Armando Gee MD Signed By: <Electronically signed by Armando Gee MD in OV> 12/05/24 1313 Ordering Physician: Laurie Caruso MD Date of Service: 12/05/24 Procedure(s): CT angio stroke protocol Accession Number(s): [id number] cc: Armando Gee MD; Laurie Caruso MD~ Examination: CTA carotids with intravenous contrast CTA brain, head with intravenous contrast. 2-D sagittal, coronal reconstructions. 3-D reconstructions. Exam date and time: December 05, 2024, 1321 hours INDICATIONS: Stroke alert, onset focal neurologic deficit today CTDI: vol (mGy) 28 DLP: (mGycm) 452 Technique: Multiple CTA axial brain, head carotid images post intravenous contrast injection 60 cc, Isovue-370. 2-D sagittal, coronal reconstructions. 3-D reconstructions, 3-D post processing including vascular maximum intensity projection images. Low dose protocols were performed. One or more of the following dose reduction techniques were used; automated exposure control, adjustment of the mA and/or KV according to patient size, use of iterative reconstruction technique. Findings: No common carotid carotid bifurcation or significant internal carotid artery stenoses Dominant right vertebral artery in the neck with no significant stenosis No cerebral large vessel arterial occlusions or thrombus IMPRESSION: No significant neck arterial stenoses No cerebral large vessel arterial occlusions or thrombus Dictated By: Armando Gee MD Signed By: <Electronically signed by Armando Gee MD in OV> 12/05/24 1345 Ordering Physician: Laurie Caruso MD Date of Service: 12/05/24 Procedure(s): XR chest 1V portable Accession Number(s): [id number] cc: Armando Gee MD; Laurie Caruso MD~ EXAMINATION: AP chest single view TECHNIQUE: 1. AP portable upright chest single view Date and time: December 05, 2024, 1338 hours INDICATIONS: Stroke alert, focal neurologic deficit today FINDINGS: Mild enlargement cardiac contour Prominent vascular congestion. No aspiration pneumonia. Prominent osteopenia IMPRESSION: Suspicious for mild heart failure No aspiration pneumonia Dictated By: Armando Gee MD Signed By: <Electronically signed by Armando Gee MD in OV> 12/05/24 1513 Medications / Prescriptions Medications or Prescriptions considered but not ordered:: None Medication administrations:: Medication Administration History Discontinued Medications Aspirin (Aspirin 325 Mg Tablet) 325 mg PO X1 ONE Stop: 12/05/24 13:28 Last Admin: 12/05/24 13:35 Dose: 325 mg Documented By: EF See above Consultations Consultation(s) initiated? (list below): Yes Consultation #1 (Physician, Specialty, Details): See course Diagnosis Neuro Differential Diagnosis: subarachnoid hemorrhage, cerebrovascular accident and transient cerebral ischemia Most likely diagnosis given after review of the tests above:: TIA rule out CVA Admission Indicated Admission indicated?: indicated Admission Request Was there a request for admission?: Yes Admission Attestation Admission request attestation: Discussed case with [] from Hospitalist service regarding admission. Discussed patients ED course, exam findings, labs, and radiology results. The Hospitalist [agrees,declines] to accept the patient for admission. Disposition Plan Disposition Plan: Admit Discharge Plan Plan Patient Disposition: Admit Acute Care w/in Hospital Prescriptions/Referrals Prescriptions/Med Rec: No Action hydrocodone-acetaminophen 5-325 mg Tablet 1 tab PO Q6HR MDD 4 PRN (Reason: pain (scale score 7-10)) Qty: 20 0RF ascorbic acid (vitamin C) [Vitamin C] 250 mg Tablet 500 mg PO BID Qty: 60 0RF docusate sodium 100 mg Capsule 100 mg PO BID Qty: 60 0RF zinc sulfate 50 mg zinc (220 mg) Capsule 220 mg PO QDAY Qty: 30 0RF Problem List Clinical Impression: TIA (transient ischemic attack) Patient/Caregiver Discharge Instructions Print Language: Italian Stand Alone Forms: Aisha Award Info., Patient Portal Info Letter
[2024-12-05 13:17] LABS: Basophils # (Auto) 0.1 Thou/mm3 (0.0-0.2); Basophils % (Auto) 1 % (0-2.5); Eosinophils # (Auto) 0.1 Thou/mm3 (0.0-0.5); Eosinophils % (Auto) 2 % (0-10); Hematocrit 42.0 % (36.0-46.0); Hemoglobin 14.0 g/dL (12.0-16.0); Immature Granulocytes Auto 0.02 Thou/mm3 (0.00-0.00); Lymphocytes # (Auto) 2.6 Thou/mm3 (1.0-4.8); Lymphocytes % (Auto) 39 % (10-50); Mean Corpuscular HGB Conc 33.3 g/dl (31.0-37.0); Mean Corpuscular Hemoglobin 29.2 pg (25.0-35.0); Mean Corpuscular Volume 88 fL (80-100); Monocytes # (Auto) 0.4 Thou/mm3 (0.0-0.8); Monocytes % (Auto) 6 % (0-12); Neutrophils # (Auto) 3.4 Thou/mm3 (1.8-7.7); Neutrophils % (Auto) 52 % (37-80); Nucleated Red Blood Cell # 0.00 Thou/mm3 (0.00-0.00); Nucleated Red Blood Cell % 0 /100 WBC (0); Platelet Count 247 Thou/mm3 (140-440); RDW Standard Deviation 42.2 fL (36.4-46.3); Red Blood Count 4.80 Miln/mm3 (4.00-5.20); White Blood Count 6.6 Thou/mm3 (3.6-11.0)
--- NOTE | 2024-12-05 13:36 | ESCONSULT_ITS ---
Tele Neuro Consultation Consultation Date 12/05/24 Most Recent Vital Signs Last Vital Signs Temp 98.1 F 12/05/24 13:30 Pulse 61 12/05/24 13:30 Resp 14 12/05/24 13:30 BP 159/53 H 12/05/24 13:30 Pulse Ox 96 12/05/24 13:30 O2 Del Method Room Air 12/05/24 13:30 Consultation Narrative [facility] Tele[facility]urology Consult Services Patient Name:???Angle Champagne Date of :???1955 Identification Number:??? Date of Service:???12/05/2024 12:59:02 Diagnosis:?G45.9 - Transient cerebral ischemic attack, unspecified Impression: ?69 yr old woman hx of colon cancer post surgery, chemo, in remission who comes with acute onset slurred speech and R arm numbness. She reports she was getting her PICC line flushed at oncology when she noted the deficits around 12:30 pm. She now has headache, but otherwise feels back to baseline, no deficit on exam, NIH 0- she is alert, oriented, speech and vision normal, no focal motor, sensory deficit, gait stable. ?CT head no acute changes, ?Diff Dx: r/o CVA, TIA, other, I did discuss IV thrombolytic with patient given acute onset of symptoms, but other than headache, she feels her symptoms have all improved, she does not feel symptoms are disabling and therefore declined IV thrombolytic. CTA head neck pending to r/o LVO. Our recommendations are outlined below. Recommendations: ? Stroke/Telemetry Floor ? Neuro Checks (Q4) ? Bedside Swallow Eval ? DVT Prophylaxis ? IV Fluids, Normal Saline ? Head of Bed 30 Degrees ? Euglycemia and Avoid Hyperthermia (PRN Acetaminophen) ? Initiate or continue Aspirin 325 MG daily ? Antihypertensives PRN if Blood pressure is greater than 220/120 or there is a concern for End organ damage/contraindications for permissive HTN. If blood pressure is greater than 220/120 give labetalol PO or IV or Vasotec IV with a goal of 15% reduction in BP during the first 24 hours. ?- TIa/ CVA work up ?- Neuro fup ?d/w pt, RN ?d/w Er DR Caruso all the recs. Sign Out: ? Discussed with Emergency Department Provider Advanced Imaging: Advanced imaging has been ordered. Results pending. Metrics: Last Known Well: 12/05/2024 12:30:00 Dispatch Time: 12/05/2024 12:59:02 Arrival Time: 12/05/2024 12:53:00 Initial Response Time: 12/05/2024 13:04:16Symptoms: R arm numbness, slurred speech. Initial patient interaction: 12/05/2024 13:12:09 NIHSS Assessment Completed: 12/05/2024 13:18:12Patient is not a candidate for Thrombolytic. Thrombolytic Medical Decision: 12/05/2024 13:18:15Patient was not deemed candidate for Thrombolytic because of following reasons: Stroke severity too mild (non-disabling) . Patient/Family declined . CT Head: I personally reviewed all the CT images that were available to me and it showed: no acute hemorrhage, also per radiology Primary Provider Notified of Diagnostic Impression and Management Plan on: 12/05/2024 13:26:24 History of Present Illness:Patient is a 69 year old Female. Patient was brought by private transportation with symptoms of R arm numbness, slurred speech. 69 yr old woman hx of colon cancer post surgery, chemo, in remission who comes with acute onset slurred speech and R arm numbness. She reports she was getting her PICC line flushed at oncology when she noted the deficits around 12:30 pm. She now has headache, but otherwise feels back to baseline, no deficit on exam, NIH 0- she is alert, oriented, speech and vision normal, no focal motor, sensory deficit, gait stable. Past Medical History: Other PMH:? colon ca Medications: No Anticoagulant use? No Antiplatelet use Reviewed EMR for current medications Allergies:? Reviewed Social History: Smoking: No Family History: There is no family history of premature cerebrovascular disease pertinent to this consultation ROS : 14 Points Review of Systems was performed and was negative except mentioned in HPI. Past Surgical History: There Is No Surgical History Contributory To Today?s Visit Examination: BP(160/91),?Pulse(88), 1A: Level of Consciousness - Alert; keenly responsive?+ 0 1B: Ask Month and Age - Both Questions Right?+ 0 1C: Blink Eyes & Squeeze Hands - Performs Both Tasks?+ 0 2: Test Horizontal Extraocular Movements - Normal?+ 0 3: Test Visual Flores - No Visual Loss?+ 0 4: Test Facial Palsy (Use Grimace if Obtunded) - Normal symmetry?+ 0 5A: Test Left Arm Motor Drift - No Drift for 10 Seconds?+ 0 5B: Test Right Arm Motor Drift - No Drift for 10 Seconds?+ 0 6A: Test Left Leg Motor Drift - No Drift for 5 Seconds?+ 0 6B: Test Right Leg Motor Drift - No Drift for 5 Seconds?+ 0 7: Test Limb Ataxia (FNF/Heel-Webber) - No Ataxia?+ 0 8: Test Sensation - Normal; No sensory loss?+ 0 9: Test Language/Aphasia - Normal; No aphasia?+ 0 10: Test Dysarthria - Normal?+ 0 11: Test Extinction/Inattention - No abnormality?+ 0 NIHSS Score:?0 NIHSS Free Text :?gait steady Pre-Morbid Modified [place] Scale: 0 Points = No symptoms at all Spoke with :?ER Dr Caruso This consult was conducted in real time using interactive audio and video technology. Patient was informed of the technology being used for this visit and agreed to proceed. Patient located in hospital and provider located at home/office setting. Patient is being evaluated for possible acute neurologic impairment and high probability of imminent or life-threatening deterioration. I spent total of 45 minutes providing care to this patient, including time for face to face visit via telemedicine, review of medical records, imaging studies and discussion of findings with providers, the patient and/or family. Dr Dot Cazares [facility] For Inpatient follow-up with [facility] physician please call [facility] at . As we are not an outpatient service for any post hospital discharge needs please contact the hospital for assistance. If you have any questions for the [facility] physicians or need to reconsult for clinical or diagnostic changes please contact us via [facility] at . Signature :Juan Miguel Cazares
[2024-12-05 13:38] LABS: Alanine Aminotransferase 16 U/L (10-49); Albumin, Serum 5.1 gm/dL (3.4-4.8); Albumin/Globulin Ratio 1.6 (1.2-2.2); Alkaline Phosphatase 76 U/L (46-116); Anion Gap 11 (7-16); Aspartate Amino Transferase 19 U/L (0-34); BUN/Creatinine Ratio 16 Ratio (12-20); Bilirubin,Total 0.7 mg/dL (0.3-1.2); Blood Urea Nitrogen 13 mg/dL (9-23); Calcium 10.2 mg/dL (8.3-10.6); Calcium (Corrected) 10.2 mg/dL (8.5-10.1); Carbon Dioxide 24.7 mMol/L (20.0-31.0); Chloride 105 mMol/L (98-107); Creatinine (Component) 0.8 mg/dL (0.6-1.3); Estimated Creatinine Clearance 62.1 mL/min (>60); Globulin 3.1 gm/dL (2.3-3.5); Glucose 103 mg/dL (74-106); Magnesium 1.9 mg/dL (1.6-2.6); Osmolality,Calculated 281 (275-295); Potassium 3.9 mMol/L (3.4-5.1); Sodium 141 mMol/L (136-145); Total Protein 8.2 gm/dL (5.7-8.2); Troponin I < 0.002 ng/mL (0.0-0.045); eGFR > 60 See Note
[2024-12-05 13:39] LABS: INR 1.0 (0.9-1.3); Partial Thromboplastin Time 26.2 Seconds (22.0-36.0); Prothrombin Time 10.3 Seconds (9.0-12.2)
[2024-12-05 15:55] LABS: Collection Type, Urine Clean Catch; Squamous Epithelial Cell,Urine 0 /hpf (0-5)
[2024-12-05 16:07] LABS: Bilirubin,Urine Negative (Negative); Blood,Urine Negative (Negative); Clarity,Urine Clear (Clear/Hazy); Color,Urine Colorless (Lt Yel-Yel); Culture Indicated,Urine Not Indicated; Glucose, Urine Negative (Negative); Ketones,Urine Negative (Negative); Leukocyte Esterase,Urine Negative (Negative); Nitrite,Urine Negative (Negative); PH,Urine 6.0 (5.0-7.0); Protein,Urine Negative (Neg - Trace); RBC,Urine 1 /hpf (0-3); Specific Gravity,Urine 1.043 (1.001-1.035); Urobilinogen,Urine Negative mg/dL (0.0-1.0); WBC,Urine < 1 /hpf (0-5)
--- NOTE | 2024-12-05 16:14 | ESHP_ITS ---
<Statement entered by Benedict Ambrocio MD - 12/05/24 20:05> 69 y/o F with PMH of colon cancer was admitted to the hospital for CVA work up. Patient had numbness of R arm along with slurred speech at oncology appt. LWK was 12:30. Tele neurology recommended admission for CVA wwork up. Symptoms had improved by time of initial assessment. HEad CT and CTA negative. No thrombolytics due to Sx not being debilitating. In summary: #CVA vs TIA Neuro on board, ASA, Statin, MRI, Echo, PT, and ST I have reviewed the note and agree with the resident's assessment & plan with exceptions as above. I have personally reviewed labs, imaging, home meds/prior records, examined the patient, formulated and discussed management plan with my attending Benedict Ambrocio PGY2 Disclaimer: Even though this this note was dictated by speech recognition and even though it was carefully revised there may still be minor errors in environmental health manager due to voice recognition software. Documentation for date of: 12/05/24 HPI History of Present Illness Chief complaint: Numbness, slurred speech History of present illness: Patient is a 69-year-old female with past medical history of colon cancer stage IV presenting with slurred speech and right arm weakness. Patient was getting Port-A-Cath flushed at cancer center today at around 12:30 PM, then began experiencing slurred speech and right arm weakness. She was then told to come to the ER. By the time she arrived to the ER, her symptoms had resolved, all she had was left-sided headache; in total, her symptoms lasted less than 1 minute then began to resolve. ED course: Patient sent to CT; spoke with tele-neuro Dr. Cazares. By point of consultation, symptoms had resolved, and patient declined TNK due to symptom resolution. Patient scans negative, will admit patient for stroke workup. Aspirin given. CTA showed no neck arterial stenosis or cerebral large vessel occlusions PMH: Stage IV colon cancer, hearing loss PSH: Hysterectomy Allergies: NKDA Social: 10 year x 0.5 ppd = 5 pack year smoker; endorses previous marijuana use Exam Vital Signs Temp Pulse Resp BP Pulse Ox O2 Del Method 97.7 F 56 L 15 117/74 95 Room Air 12/05/24 15:17 12/05/24 15:17 12/05/24 15:17 12/05/24 15:17 12/05/24 15:17 12/05/24 15:17 Narrative Exam General: A/O x3, no acute distress, well-nourished, well-developed Eyes: PERRL, EOMI. Anicteric, vision grossly intact. Ears: No ear pain, no ear discharge, Hearing grossly intact. Nose: No nasal discharge. Mouth/Throat: Moist mucous membranes, no redness, no lesions. Neck: Neck supple, non-tender, no cervical lymphadenopathy. Lungs: Clear KEISHA to auscultation and percussion, No accessory muscle use. Cardio: Normal S1/S2, regular rhythm, no murmurs, no JVD or carotid bruits. Abdomen: Soft, non-tender, no palpable masses, peristalsis present, no guarding or rebound. Colostomy present. Extremities: Symmetrical, no significant deformities, no peripheral edema , non-tender, peripheral pulses presents. Skin: No rashes, no lesions, warm to touch. Neuro: No focal neurological deficits. Motor and sensation intact. Psych: Cooperative, appropriate mood and effect. Results: Labs 12/05/24 13:00 12/05/24 13:00 Labs: Short CBC 12/05/24 Range/Units 13:00 WBC 6.6 (3.6-11.0) Thou/mm3 Hgb 14.0 (12.0-16.0) g/dL Hct 42.0 (36.0-46.0) % Plt Count 247 D (140-440) Thou/mm3 BMP 12/05/24 13:00 Sodium 141 Potassium 3.9 Chloride 105 Carbon Dioxide 24.7 BUN 13 Creatinine 0.8 Glucose 103 Calcium 10.2 Cardiac Enzymes 12/05/24 Range/Units 13:00 Troponin I < 0.002 (0.0-0.045) ng/mL Liver Function 12/05/24 Range/Units 13:00 Total Bilirubin 0.7 (0.3-1.2) mg/dL AST 19 (0-34) U/L ALT 16 (10-49) U/L Alkaline Phosphatase 76 (46-116) U/L Albumin 5.1 H (3.4-4.8) gm/dL Quality Measures Quality Measures stroke Suspected type of Stroke: TIA Last known well (date): 12/05/24 Last known well (time): 12:30 Tenecteplase given: Reason(s) Tenecteplase not given: Stroke severity too mild (non-disabling) not given Rehab services: PT evaluation ordered and Speech Language Pathology eval ordered VTE Prophylaxis: mechanical Antithrombotic by day 2:: refused (Patient declined due to symptom resolution) Statin ordered: <75 y/o high intensity dose Anticoagulation ordered for A-fib or flutter (current or hx): ordered Advance care planning discussed with:: other Medications Home Medications and Allergies Allergies Allergy/AdvReac Type Severity Reaction Status Date / Time No Known Allergies Allergy Verified 12/05/24 12:57 Visit Medications Discontinued Medications Aspirin (Aspirin 325 Mg Tablet) 325 mg PO X1 ONE Stop: 12/05/24 13:28 Last Admin: 12/05/24 13:35 Dose: 325 mg Assessment & Plan Plan Patient is a 69-year-old female with past medical history of colon cancer stage IV and hearing loss who presented to the ED on 12/05/2024 with new onset slurred speech and right arm weakness. # TIA At 12:30 PM on 12/05/2024, patient had an episode lasting less than 1 minute with slurred speech and right arm weakness, which subsequently resolved and she developed a left-sided headache. Teleneuro examination showed NIH stroke scale was 0, and patient denied TNK due to improvement of symptoms. CT head showed no masses, infarct, or hemorrhages; CTA showed no neck arterial stenosis or cerebral large vessel occlusions. Plan: Neurology consulted, appreciate recommendations Patient given aspirin 325 mg in the ED per teleneurology recommendations Aspirin 81 mg, atorvastatin 80, labetalol 5, and 1 L NS at 75 cc/h started Echo and MRI for stroke protocol ordered PT and OPTOMETRY DOCTOR evaluation ordered # History of colon cancer stage IV # History of hearing loss Patient follows at cancer center, and is currently receiving chemotherapy. Hearing loss self-reported by patient; has been occurring for 7 years. Plan: Outpatient follow-up Disposition: Tele DVT prophylaxis: GI prophylaxis: Diet: regular Lines: PIV CODE STATUS: Full code This case was discussed with my attending physician, Dr. Rodriguez, and senior resident, Dr. Arambula. Gerald Bain MD-PhD, PGY1 Attending Provider Attestation/Addendum I or my resident physicians have discussed care with the ED physician and I have made the decision to admit. I have discussed and was present for the essential components of the history, physical examination, diagnosis, and treatment plan with the resident. I agree with the patient's care as documented by the resident and amended herein by me. Hernesto Rodriguez DO. Although this document has been carefully reviewed, there may still be some phonetic and other typographical errors. These errors are purely grammatical due to imperfections in the software program and should not be construed in any way to compromise the substance of the patient's medical care during this visit.
--- NOTE | 2024-12-05 16:18 | ECHO_ITS ---
Transthoracic Echo Report Ht (in): 66 Wt (lb): 149 Exam Location: 268 Status: Emergency Finisher Card Tender: Judah Hamilton Indications: Procedure Performed: BP: 107 / 55 HR: 78 MEASUREMENTS (Male / Female) Normal Values 2D ECHO LV Diastolic Diameter PLAX 5.2 cm 4.2 - 5.9 / 3.9 - 5.3 cm LV Systolic Diameter PLAX 3.2 cm IVS Diastolic Thickness 0.7 cm 0.6 - 1.0 / 0.6 - 0.9 cm LVPW Diastolic Thickness 1.0 cm 0.6 - 1.0 / 0.6 - 0.9 cm LV Relative Wall Thickness 0.3 LVOT Diameter 1.9 cm LA Volume Index 20.4 cm?/m? 16 - 28 cm?/m? Ascending Aorta Diameter 3.1 cm M-MODE AV Cusp Separation MM 1.7 cm DOPPLER AV Peak Velocity 142.0 cm/s AV Peak Gradient 8.1 mmHg AV Mean Gradient 4.0 mmHg AV Velocity Time Integral 33.0 cm LVOT Peak Velocity 99.8 cm/s LVOT Peak Gradient 4.0 mmHg LVOT Velocity Time Integral 23.3 cm LVOT Cardiac Index 2892.3 cm?/min?m? AV Area Cont Eq vti 2.0 cm? AV Area Cont Eq pk 2.0 cm? LV E' Lateral Velocity 7.4 cm/s LV E' Septal Velocity 7.8 cm/s TR Peak Velocity 121.4 cm/s TR Peak Gradient 5.9 mmHg PV Peak Velocity 72.1 cm/s PV Peak Gradient 2.1 mmHg FINDINGS Left Ventricle Normal left ventricular size, wall thickness, systolic function with no obvious regional wall motion abnormalities. Normal left ventricular diastolic filling pattern for age. The ejection fraction is visually estimated at 55-60%. Right Ventricle The right ventricle is normal in size and systolic function. Left Atrium The left atrium is normal by two-dimensional, color flow and Doppler imaging with no structural abnormalities, no thrombus formation present. Right Atrium The right atrium is normal by two-dimensional imaging, color flow and Doppler imaging with no structural abnormalities, no thrombus formation present. Atrial Septum The interatrial septum is normal to color flow Doppler and agitated saline imaging. Aorta The aorta is normal by two-dimensional, color flow and Doppler interrogation. Mitral Valve The mitral valve is normal by two-dimensional, color flow and Doppler interrogation.mild mitral regurgitation. Aortic Valve The aortic valve is trileaflet and normal by two-dimensional, color flow and Doppler interrogation. Trace aortic valve regurgitation. Tricuspid Valve The tricuspid valve is normal by two-dimensional, color flow and Doppler interrogation. There is trace tricuspid valve regurgitation. Pulmonic Valve The pulmonic valve is not well visualized. There is no significant pulmonic valve regurgitation. Vessels The pulmonary artery appears normal. The inferior vena cava pulmonary and hepatic veins appear normal. Pericardium The pericardium is normal by two-dimensional imaging. There is no significant pericardial effusion. CONCLUSIONS Indication: Stroke rule out with bubble study Suboptimal bubble study and cannot rule out any PFO or ASD. Recommend DAPHNEY if high index of clinical suspicion. Normal left ventricular size and function. Approximate ejection fraction is 55- 60%. Stage I diastolic dysfunction. Normal right ventricular size and function. Normal RVSP. Mild mitral regurgitation, trace tricuspid and aortic regurgitation noted. No pericardial effusion. Gerard Luis (Electronically Signed) Final Date: 06 December 2024 19:03
[2024-12-05 16:20] LABS: Amphetamine/Methamp Scrn,U Negative (Negative); Barbiturate Screen,Urine Negative (Negative); Benzodiazepines Screen,Urine Negative (Negative); Benzoylecgonine Screen, Ur Negative (Negative); Fentanyl Screen,Urine Negative (Negative); Opiate Screen,Urine Negative (Negative); THC Screen,Urine Positive (Negative)
[2024-12-05] MEDS: SODIUM CHLORIDE 0.9% 1000 ML 1,000 ML 75 ML IV (16:43)
--- NOTE | 2024-12-05 19:09 | PC.ADMIT ---
pt admitted from ED to tele floor at 18:30. Pt alert and oriented GCS 15. NIH 0, vital signs stable. Pt now on tele report given to senior technical support analystwarehouse supervisor 3rd shift
[2024-12-05] MEDS: HEPARIN SOD INJ 5000 UNIT/ML VIAL SC (21:39)
[2024-12-06] VITALS (8 sets, daily range): BP systolic 107–134; BP diastolic 55–85; PULSE 49–75; RESP 16–95; TEMP 36.1–36.5; O2SAT 93–97; BMI 26.2
[2024-12-06] MEDS: HEPARIN SOD INJ 5000 UNIT/ML VIAL SC ×3 (05:33→21:07)
[2024-12-06 06:14] LABS: Basophils # (Auto) 0.0 Thou/mm3 (0.0-0.2); Basophils % (Auto) 1 % (0-2.5); Eosinophils # (Auto) 0.1 Thou/mm3 (0.0-0.5); Eosinophils % (Auto) 3 % (0-10); Hematocrit 39.8 % (36.0-46.0); Hemoglobin 13.3 g/dL (12.0-16.0); Immature Granulocytes Auto 0.01 Thou/mm3 (0.00-0.00); Lymphocytes # (Auto) 1.5 Thou/mm3 (1.0-4.8); Lymphocytes % (Auto) 43 % (10-50); Mean Corpuscular HGB Conc 33.4 g/dl (31.0-37.0); Mean Corpuscular Hemoglobin 29.6 pg (25.0-35.0); Mean Corpuscular Volume 88 fL (80-100); Monocytes # (Auto) 0.2 Thou/mm3 (0.0-0.8); Monocytes % (Auto) 7 % (0-12); Neutrophils # (Auto) 1.6 Thou/mm3 (1.8-7.7); Neutrophils % (Auto) 45 % (37-80); Nucleated Red Blood Cell # 0.00 Thou/mm3 (0.00-0.00); Nucleated Red Blood Cell % 0 /100 WBC (0); Platelet Count 202 Thou/mm3 (140-440); RDW Standard Deviation 43.1 fL (36.4-46.3); Red Blood Count 4.50 Miln/mm3 (4.00-5.20); White Blood Count 3.5 Thou/mm3 (3.6-11.0)
[2024-12-06 06:22] LABS: Glucose Estimated Average 111 mg/dL (80-131); Hemoglobin A1C 5.5 % Hgb (4.8-6.0)
[2024-12-06 06:23] LABS: INR 1.0 (0.9-1.3); Partial Thromboplastin Time 26.8 Seconds (22.0-36.0); Prothrombin Time 10.8 Seconds (9.0-12.2)
[2024-12-06 06:51] LABS: Alanine Aminotransferase 13 U/L (10-49); Albumin, Serum 4.3 gm/dL (3.4-4.8); Albumin/Globulin Ratio 2.0 (1.2-2.2); Alkaline Phosphatase 66 U/L (46-116); Anion Gap 10 (7-16); Aspartate Amino Transferase 16 U/L (0-34); BUN/Creatinine Ratio 10 Ratio (12-20); Bilirubin,Total 0.7 mg/dL (0.3-1.2); Blood Urea Nitrogen 8 mg/dL (9-23); Calcium 9.2 mg/dL (8.3-10.6); Calcium (Corrected) 9.2 mg/dL (8.5-10.1); Carbon Dioxide 25.4 mMol/L (20.0-31.0); Cardiac Risk Estimate 5.3 RATIO (3.7-5.6); Chloride 108 mMol/L (98-107); Cholesterol 290 mg/dL (132-200); Creatinine (Component) 0.8 mg/dL (0.6-1.3); Estimated Creatinine Clearance 68.4 mL/min (>60); Globulin 2.2 gm/dL (2.3-3.5); Glucose 92 mg/dL (74-106); HDL Cholesterol 55 mg/dL (40-60); LDL Cholesterol,Calculated 204 mg/dL (0-130); Magnesium 2.0 mg/dL (1.6-2.6); Osmolality,Calculated 283 (275-295); Phosphorous 3.4 mg/dL (2.4-5.1); Potassium 3.8 mMol/L (3.4-5.1); Sodium 143 mMol/L (136-145); Thyroid Stimulating Hormone 1.97 uIU/mL (0.55-4.78); Total Protein 6.5 gm/dL (5.7-8.2); Triglycerides 154 mg/dL (30-150); eGFR > 60 See Note
[2024-12-06] MEDS: ASPIRIN EC 81 MG TABEC PO (08:23)
--- NOTE | 2024-12-06 12:17 | PC.PT ---
PT eval only. Patient is xI with bed mobility, transfers, and ambulation with no AD. Patient is safe to ambulate to the bathroom and in the halls with no AD. RN made aware.
--- NOTE | 2024-12-06 13:38 | PD.RESPRO ---
Documentation for date of: 12/06/24 Subjective Subjective Interval history: Patient seen and examined at bedside today; no acute issues overnight. Patient comfortable in bed and waiting on neurology consult. No overnight events on telemetry. Exam Vital Signs Temp Pulse Resp BP Pulse Ox O2 Del Method 97.6 F 57 L 17 109/69 94 L Room Air 12/06/24 12:00 12/06/24 12:00 12/06/24 12:00 12/06/24 12:00 12/06/24 12:00 12/06/24 12:00 Narrative Exam General: A/O x3, no acute distress, well-nourished, well-developed Eyes: PERRL, EOMI. Anicteric, vision grossly intact. Ears: No ear pain, no ear discharge, Hearing grossly intact. Nose: No nasal discharge. Mouth/Throat: Moist mucous membranes, no redness, no lesions. Neck: Neck supple, non-tender, no cervical lymphadenopathy. Lungs: Clear KEISHA to auscultation and percussion, No accessory muscle use. Cardio: Normal S1/S2, regular rhythm, no murmurs, no JVD or carotid bruits. Abdomen: Soft, non-tender, no palpable masses, peristalsis present, no guarding or rebound. Colostomy present. Extremities: Symmetrical, no significant deformities, no peripheral edema , non-tender, peripheral pulses presents. Skin: No rashes, no lesions, warm to touch. Neuro: No focal neurological deficits. Motor and sensation intact. Psych: Cooperative, appropriate mood and effect. Objective Labs 12/06/24 05:13 12/06/24 05:13 Labs: Laboratory Results - last 24 hr 12/05/24 12/05/24 12/06/24 13:00 15:50 05:13 WBC 3.5 L D RBC 4.50 Hgb 13.3 Hct 39.8 MCV 88 MCH 29.6 MCHC 33.4 RDW Std Deviation 43.1 Plt Count 202 D Neut % (Auto) 45 Lymph % (Auto) 43 [place] % (Auto) 7 Eos % (Auto) 3 Baso % (Auto) 1 Neut # (Auto) 1.6 L Lymph # (Auto) 1.5 [place] # (Auto) 0.2 Eos # (Auto) 0.1 Baso # (Auto) 0.0 Immature Gran # (Auto) 0.01 H Absolute Nucleated RBC 0.00 Immature Gran % 0 Nucleated RBC % 0 PT 10.3 10.8 INR 1.0 1.0 APTT 26.2 26.8 Sodium 141 143 Potassium 3.9 3.8 Chloride 105 108 H Carbon Dioxide 24.7 25.4 Anion Gap 11 10 BUN 13 8 L Creatinine 0.8 0.8 Estim Creat Clear Calc 62.1 68.4 eGFR > 60 > 60 BUN/Creatinine Ratio 16 10 L Glucose [address] Glu mg/dL 111 Hemoglobin A1c 5.5 Calculated Osmolality 281 283 Calcium 10.2 9.2 Corrected Calcium 10.2 H 9.2 Phosphorus 3.4 Magnesium 1.9 2.0 Total Bilirubin 0.7 0.7 AST 19 16 ALT 16 13 Alkaline Phosphatase 76 66 Troponin I < 0.002 Total Protein 8.2 6.5 Albumin 5.1 H 4.3 D Globulin 3.1 2.2 L Albumin/Globulin Ratio 1.6 2.0 Triglycerides 154 H Cholesterol 290 H LDL Cholesterol, Calc 204 H HDL Cholesterol 55 Cholesterol/HDL Ratio 5.3 TSH 1.97 Ur Collection Type Clean Catch Urine Color Colorless A Urine Clarity Clear Urine pH 6.0 Ur Specific [place] 1.043 H Urine Protein Negative Urine Glucose (UA) Negative Urine Ketones Negative Urine Blood Negative Urine Nitrite Negative Urine Bilirubin Negative Urine Urobilinogen (Auto) Negative Ur Leukocyte Esterase Negative Urine RBC 1 Urine WBC < 1 Ur Squamous Epith Cells 0 Urine Bacteria None Ur Culture Indicated? Not Indicated Urine Opiates Screen Negative Urine Fentanyl Screen Negative Ur Barbiturates Screen Negative U Amphetamin/Meth Scrn Negative U Benzodiazepines Scrn Negative U Cocaine Metab Screen Negative U Marijuana (THC) Screen Positive A Quality Measures Quality Measures stroke Suspected type of Stroke: TIA Last known well (date): 12/05/24 Last known well (time): 12:30 Tenecteplase given: Reason(s) Tenecteplase not given: Stroke severity too mild (non-disabling) not given Rehab services: PT evaluation ordered and Speech Language Pathology eval ordered VTE Prophylaxis: pharmaceutical Antithrombotic by day 2:: refused Statin ordered: <75 y/o high intensity dose Anticoagulation ordered for A-fib or flutter (current or hx): ordered Advance care planning discussed with:: other Assessment & Plan Assessment Current Active Medications: Generic Name Dose Route Start Last Admin Trade Name Freq PRN Reason Stop Dose Admin Acetaminophen 650 mg 10/13/25 16:38 Acetaminophen 325 Mg Tablet PO 01/04/25 16:37 Q6H PRN Fever >100.4 Acetaminophen 650 mg 12/05/24 16:38 Acetaminophen 325 Mg Tablet PO 01/04/25 16:37 Q6H PRN PAIN SCALE 1-3 (mild Hydrocodone Bitart/Acetaminophen 1 tab 12/05/24 16:38 Hydrocodone/Apap 5/325 Tablet PO 12/10/24 16:37 Q4HR PRN PAIN SCALE 4-6 (Moderate Aspirin 81 mg 12/06/24 09:00 12/06/24 08:23 Aspirin Ec 81 Mg Tabec PO 01/05/25 08:59 81 mg QDAY SHARLA Administration Atorvastatin Calcium 80 mg 12/05/24 21:00 12/05/24 21:45 Atorvastatin Calcium 10 Mg Tablet PO 01/04/25 20:59 Not Given HS SHARLA Heparin Sodium (Porcine) 5,000 unit 12/05/24 22:00 12/06/24 13:22 Heparin Sod Inj 5000 Unit/Ml Vial SC 12/19/24 21:59 5,000 unit Q8HR SHARLA Administration Labetalol HCl 5 mg 12/05/24 16:20 Labetalol Inj 5 Mg/Ml Vial 20 Ml IVP 01/04/25 16:29 Q6H PRN SBP above 220 Ondansetron HCl 4 mg 12/05/24 16:38 Ondansetron Inj 2 Mg/Ml Inj 2 Ml IVP 01/04/25 16:37 Q6H PRN NAUSEA OR VOMITING Protocol Plan Patient is a 69-year-old female with past medical history of colon cancer stage IV and hearing loss who presented to the ED on 12/05/2024 with new onset slurred speech and right arm weakness. # TIA At 12:30 PM on 12/05/2024, patient had an episode lasting less than 1 minute with slurred speech and right arm weakness, which subsequently resolved and she developed a left-sided headache. Teleneuro examination showed NIH stroke scale was 0, and patient denied TNK due to improvement of symptoms. CT head showed no masses, infarct, or hemorrhages; CTA showed no neck arterial stenosis or cerebral large vessel occlusions. Plan: Neurology consulted, appreciate recommendations Patient given aspirin 325 mg in the ED per teleneurology recommendations Aspirin 81 mg, atorvastatin 80, labetalol 5 started; 1 L NS at 75 cc/h given Echo and MRI for stroke protocol ordered PT and CONTINUITY MANAGER cleared her at this time # History of colon cancer stage IV # History of hearing loss Patient follows at cancer center, and is currently receiving chemotherapy. Hearing loss self-reported by patient; has been occurring for 7 years. Plan: Outpatient follow-up Disposition: Tele DVT prophylaxis: Heparin GI prophylaxis: Diet: regular Lines: PIV CODE STATUS: Full code This case was discussed with my attending physician, Dr. Jones, and senior resident, Dr. Arambula. Gerald Bain MD-PhD, PGY1
--- NOTE | 2024-12-06 16:19 | ESDS_ITS ---
<Statement entered by Benedict Ambrocio MD - 12/06/24 16:57> I have reviewed the note and agree with the resident's assessment & plan with exceptions as below. I have personally reviewed labs, imaging, home meds/prior records, examined the patient, formulated and discussed management plan with my attending Patient was seen evaluated bedside this morning. No acute overnight events. Patient's imaging including MRI was negative. On the day of discharge patient was deemed stable enough to be discharged home. Patient's labs look fairly unremarkable other than elevated lipids. Echo was taken, but results were not yet available therefore patient will need to follow with primary care physician for echo results. Benedict Ambrocio PGY2 Disclaimer: Even though this this note was dictated by speech recognition and even though it was carefully revised there may still be minor errors in psych specialist due to voice recognition software. Planned Discharge Date 12/06/24 DS: Providers Provider Date of admission: 12/05/24 16:16 Primary care physician: Cornelio Ivey MD Admitting Provider: Christiano Rodriguez DO Attending Provider on Admission: Christiano Rodriguez DO Consults: 12/05/24 13:03 Consult to Neurology / Tele-Neurology Routine Comment: Consulting Provider: [facility] 12/05/24 16:39 Referral Physical Therapy Routine Comment: Physician Instructions: Referral Speech Therapy Routine Comment: 12/06/24 07:50 Consult to Neurology / Tele-Neurology Routine Comment: Consulting Provider: Navneet Caldwell Attending Provider on DC: Darnell Jones MD Discharging Provider: Darnell Jones MD DS: Diagnosis Problem List Completed Was Problem List Reviewed/Reconciled?: Yes Hospital Course Hospital Course Hospital course: Hospital Course: Patient is a 69-year-old female with past medical history of colon cancer stage IV presenting with slurred speech and right arm weakness on 12/06/24. Patient was getting Port-A-Cath flushed at cancer center at around 12:30 PM, then began experiencing slurred speech and right arm weakness. She was then told to come to the ER. By the time she arrived to the ER, her symptoms had resolved, all she had was left-sided headache; in total, her symptoms lasted less than 1 minute then began to resolve. Teleneurology saw her (NIHSS 0), and suggested aspirin, atorvastain, and labetalol, which were given. CT and CTA were negative for acute hemorrhage mass effect or midline shift. MRI and echo were also taken. On 12/06/24, patient again showed no symptoms. MRI showed no acute infract. Neurology cleared patient for discharge. Labs showed hypercholesterolemia (LDL 204, triglycerides 154, choelsterol 290), and patient was started on atorvastatin 80. Patient was stable, and therefore discharged on 12/06/24. Discharge Instructions: Follow-up primary care physician within 2 or 3 days upon discharge Please follow-up with neurology within 7 days upon discharge You have been started on aspirin 81 mg daily You have been started on atorvastatin 80 mg daily along with co-Q10 Please come back to the ED if symptoms persist or worsen. Problem List: # TIA # History of colon cancer stage IV # History of hearing loss Status at Discharge Functional status at discharge: independent ambulation Overall status at discharge: patient is back to baseline Time Spent with Patient Time attestation: Total time spent providing and/or coordinating discharge services: Time spent: Greater than 30 minutes Exam Vital Signs Temp Pulse Resp BP Pulse Ox O2 Del Method 97.6 F 57 L 17 109/69 94 L Room Air 12/06/24 12:00 12/06/24 12:00 12/06/24 12:00 12/06/24 12:00 12/06/24 12:00 12/06/24 12:00 Narrative Exam General: A/O x3, no acute distress, well-nourished, well-developed Eyes: PERRL, EOMI. Anicteric, vision grossly intact. Ears: No ear pain, no ear discharge, Hearing grossly intact. Nose: No nasal discharge. Mouth/Throat: Moist mucous membranes, no redness, no lesions. Neck: Neck supple, non-tender, no cervical lymphadenopathy. Lungs: Clear KEISHA to auscultation and percussion, No accessory muscle use. Cardio: Normal S1/S2, regular rhythm, no murmurs, no JVD or carotid bruits. Abdomen: Soft, non-tender, no palpable masses, peristalsis present, no guarding or rebound. Colostomy present. Extremities: Symmetrical, no significant deformities, no peripheral edema , non-tender, peripheral pulses presents. Skin: No rashes, no lesions, warm to touch. Neuro: No focal neurological deficits. Motor and sensation intact. Psych: Cooperative, appropriate mood and effect. Discharge Plan Plan Patient Disposition: HOME (Self Care) Care Plan Goals: Follow-up primary care physician within 2 or 3 days upon discharge Please follow-up with neurology within 7 days upon discharge You have been started on aspirin 81 mg daily You have been started on atorvastatin 80 mg daily along with co-Q10 Follow up with your primary care physician for echo results Please come back to the ED if symptoms persist or worsen. Prescriptions/Referrals Prescriptions/Med Rec: New aspirin 81 mg Tablet,Delayed Release (Dr/Ec) 81 mg PO QDAY 30 Days Qty: 30 0RF atorvastatin [Lipitor] 80 mg tablet 80 mg PO QPM Qty: 30 0RF coenzyme Q10 [CoQ-10] 100 mg capsule 100 mg PO QDAY Qty: 30 0RF Continued docusate sodium 100 mg Capsule 100 mg PO BID Qty: 60 0RF Referrals: Cornelio Ivey([facility])MD [Primary Care Provider, Family Practice] Patient/Caregiver Discharge Instructions Other Discharge Diet Instructions: Follow-up primary care physician within 2 or 3 days upon discharge Please follow-up with neurology within 7 days upon discharge You have been started on aspirin 81 mg daily You have been started on atorvastatin 80 mg daily along with co-Q10 Follow up with your primary care physician for echo results Please come back to the ED if symptoms persist or worsen. Education Materials: What Is a TIA?, Anatomy of the Brain Print Language: Samoan Stand Alone Forms: Aisha Award Info., Patient Portal Info Letter Quality Discharge Quality Measures none MD Attestestation MD Attestation I reviewed labs, imaging, EKG, home medications and prior available records. Face to face evaluation was performed by me. I have personally examined the patient and discussed assessment and plan with the IM team. I reviewed the resident note and agree with the plan with exceptions as below. Right arm weakness, resolved TIA Slurred speech, resolved History of colon cancer MRI is negative for CVA Symptoms likely presenting TIA Continue aspirin and atorvastatin Follow-up with neurology as outpatient Time spent is 35 minutes. More than 50% of the time was spent on patient education and coordination of care.
--- NOTE | 2024-12-06 16:48 | ESPR_ITS ---
Documentation for date of: 12/06/24 Subjective Subjective Interval history: Patient examined at bedside. Vitals are stable, labs unremarkable. A1c 5.5, hypercholesterolemia with cholesterol 290, TG AG 154, LDL 204. Echo results are pending. Presenting symptoms including slurred speech and right arm numbness have resolved. Presents with good strength 5/5 on physical exam. Has no major complaints. Continue aspirin and atorvastatin upon discharge. Exam Vital Signs Temp Pulse Resp BP Pulse Ox O2 Del Method 97.6 F 57 L 17 109/69 94 L Room Air 12/06/24 12:00 12/06/24 12:00 12/06/24 12:00 12/06/24 12:00 12/06/24 12:00 12/06/24 12:00 Narrative Exam General: No acute distress, cooperative HEENT: NCAT, No JVD noted. Mucosa moist. Pupils are equal and reactive to light bilaterally Cardiovascular: Normal S1 and S2. Regular rate and rhythm. Respiratory: Lungs are clear to auscultation bilaterally. No wheezing or crackles heard. Abdomen: Soft, nontender, not distended, normal bowel sounds. Colostomy bag in place Skin: Warm to touch, dry, no rashes noted Musculoskeletal: No gross injuries. Able to move all 4 extremities. No pitting edema Neuro: Alert and oriented x3. No focal neuro deficits. Cranial nerves: II through XII grossly intact. Speech and language: Normal with no dysarthria or dysphasia. Motor system: Tone and bulk: Normal: Strength: 5 out of 5 in all 4 extremities; No pronator drift noted. Deep tendon reflexes: 2+ bilaterally symmetrical. Plantar reflex: Downgoing bilaterally. Sensory system: Intact to all modalities of sensation bilaterally. Coordination: Intact to lualqo-atxo-fgozj and pcfy-mfzl-pawm test bilaterally. No ataxia, no dysmetria, or dysdiadochokinesia noted. No intention tremors noted. Gait: Not tested. No signs of meningeal irritation noted. Psych: Normal affect and mood Objective Labs 12/07/24 04:34 12/07/24 04:34 Labs: Laboratory Results - last 24 hr 12/06/24 05:13 WBC 3.5 L D RBC 4.50 Hgb 13.3 Hct 39.8 MCV 88 MCH 29.6 MCHC 33.4 RDW Std Deviation 43.1 Plt Count 202 D Neut % (Auto) 45 Lymph % (Auto) 43 [place] % (Auto) 7 Eos % (Auto) 3 Baso % (Auto) 1 Neut # (Auto) 1.6 L Lymph # (Auto) 1.5 [place] # (Auto) 0.2 Eos # (Auto) 0.1 Baso # (Auto) 0.0 Immature Gran # (Auto) 0.01 H Absolute Nucleated RBC 0.00 Immature Gran % 0 Nucleated RBC % 0 PT 10.8 INR 1.0 APTT 26.8 Sodium 143 Potassium 3.8 Chloride 108 H Carbon Dioxide 25.4 Anion Gap 10 BUN 8 L Creatinine 0.8 Estim Creat Clear Calc 68.4 eGFR > 60 BUN/Creatinine Ratio 10 L Glucose [address] Glu mg/dL 111 Hemoglobin A1c 5.5 Calculated Osmolality 283 Calcium 9.2 Corrected Calcium 9.2 Phosphorus 3.4 Magnesium 2.0 Total Bilirubin 0.7 AST 16 ALT 13 Alkaline Phosphatase 66 Total Protein 6.5 Albumin 4.3 D Globulin 2.2 L Albumin/Globulin Ratio 2.0 Triglycerides 154 H Cholesterol 290 H LDL Cholesterol, Calc 204 H HDL Cholesterol 55 Cholesterol/HDL Ratio 5.3 TSH 1.97 Quality Measures Quality Measures none Advance care planning discussed with:: patient Assessment & Plan Assessment Current Active Medications: Generic Name Dose Route Start Last Admin Trade Name Freq PRN Reason Stop Dose Admin Acetaminophen 650 mg 12/05/24 16:38 Acetaminophen 325 Mg Tablet PO 01/04/25 16:37 Q6H PRN Fever >100.4 Acetaminophen 650 mg 12/05/24 16:38 Acetaminophen 325 Mg Tablet PO 01/04/25 16:37 Q6H PRN PAIN SCALE 1-3 (mild Hydrocodone Bitart/Acetaminophen 1 tab 12/05/24 16:38 Hydrocodone/Apap 5/325 Tablet PO 12/10/24 16:37 Q4HR PRN PAIN SCALE 4-6 (Moderate Aspirin 81 mg 12/06/24 09:00 12/06/24 08:23 Aspirin Ec 81 Mg Tabec PO 01/05/25 08:59 81 mg QDAY SHARLA Administration Atorvastatin Calcium 80 mg 12/05/24 21:00 12/05/24 21:45 Atorvastatin Calcium 10 Mg Tablet PO 01/04/25 20:59 Not Given HS SHARLA Heparin Sodium (Porcine) 5,000 unit 12/05/24 22:00 12/06/24 13:22 Heparin Sod Inj 5000 Unit/Ml Vial SC 12/19/24 21:59 5,000 unit Q8HR SHARLA Administration Labetalol HCl 5 mg 12/05/24 16:20 Labetalol Inj 5 Mg/Ml Vial 20 Ml IVP 01/04/25 16:29 Q6H PRN SBP above 220 Ondansetron HCl 4 mg 12/05/24 16:38 Ondansetron Inj 2 Mg/Ml Inj 2 Ml IVP 01/04/25 16:37 Q6H PRN NAUSEA OR VOMITING Protocol Plan 69 y/o F with PMH of colon cancer presented to the ED on 12/05/2024 with new onset slurred speech and right arm weakness. Neurology consulted for workup of stroke. #Slurred speech (resolved) #Right arm numbness (resolved) 2/2 #TIA Patient was at [facility] getting washout from Port-A-Cath when she started developing slurred speech and right arm weakness. Episodes lasted for less than a minute. Did not return however endorsed headache. Teleneuro was consulted, NIHSS scale 0, CT head, CTA head and neck negative for mass or acute hemorrhage/LVO. MRI negative for acute hemorrhage/infarct. -Aspirin 81 mg daily -atorvastatin 80mg daily -10 mg IV labetalol if SBP <160 -diet and exercise to reduce risk factors for stroke #History of colon cancer stage IV Primary care team to manage above conditions and ongoing care needs. The patient's management plan was discussed with my attending physician Dr. Caldwell. Lynn Quach, PGY-2 Attending Provider Attestation/Addendum I personally have seen and examined the patient at the bedside and I agreed with the resident's findings, assessment and plan of care. I agreed with the workup. Her clinical presentation is consistent with transient ischemic attack and is stable from neurology standpoint for discharge on aspirin and statin and follow-up with me in 2 weeks.
[2024-12-06] MEDS: ATORVASTATIN CALCIUM 10 MG TABLET 80 MG PO (20:04)
[2024-12-07] VITALS: BP 126/67; PULSE 53; PULSE 56; RESP 18; TEMP 36.1; O2SAT 95
[2024-12-07 01:54] VITALS: PULSE 96; RESP 18; RESP 94
[2024-12-07 04:00] VITALS: BP 104/77; PULSE 68; PULSE 71; RESP 19; TEMP 36.1; O2SAT 93
[2024-12-07] MEDS: HEPARIN SOD INJ 5000 UNIT/ML VIAL SC (05:35)
[2024-12-07 06:00] VITALS: BMI 26.7
[2024-12-07 06:16] LABS: Basophils # (Auto) 0.0 Thou/mm3 (0.0-0.2); Basophils % (Auto) 1 % (0-2.5); Eosinophils # (Auto) 0.1 Thou/mm3 (0.0-0.5); Eosinophils % (Auto) 3 % (0-10); Hematocrit 40.4 % (36.0-46.0); Hemoglobin 13.7 g/dL (12.0-16.0); Immature Granulocytes Auto 0.01 Thou/mm3 (0.00-0.00); Lymphocytes # (Auto) 1.8 Thou/mm3 (1.0-4.8); Lymphocytes % (Auto) 37 % (10-50); Mean Corpuscular HGB Conc 33.9 g/dl (31.0-37.0); Mean Corpuscular Hemoglobin 29.5 pg (25.0-35.0); Mean Corpuscular Volume 87 fL (80-100); Monocytes # (Auto) 0.3 Thou/mm3 (0.0-0.8); Monocytes % (Auto) 7 % (0-12); Neutrophils # (Auto) 2.5 Thou/mm3 (1.8-7.7); Neutrophils % (Auto) 52 % (37-80); Nucleated Red Blood Cell # 0.00 Thou/mm3 (0.00-0.00); Nucleated Red Blood Cell % 0 /100 WBC (0); Platelet Count 218 Thou/mm3 (140-440); RDW Standard Deviation 42.0 fL (36.4-46.3); Red Blood Count 4.65 Miln/mm3 (4.00-5.20); White Blood Count 4.8 Thou/mm3 (3.6-11.0)
[2024-12-07 06:34] VITALS: PULSE 69; RESP 18; RESP 93
[2024-12-07 06:35] LABS: Alanine Aminotransferase 10 U/L (10-49); Albumin, Serum 4.1 gm/dL (3.4-4.8); Albumin/Globulin Ratio 1.5 (1.2-2.2); Alkaline Phosphatase 65 U/L (46-116); Anion Gap 10 (7-16); Aspartate Amino Transferase 15 U/L (0-34); BUN/Creatinine Ratio 13 Ratio (12-20); Bilirubin,Total 0.6 mg/dL (0.3-1.2); Blood Urea Nitrogen 9 mg/dL (9-23); Calcium 9.2 mg/dL (8.3-10.6); Calcium (Corrected) 9.2 mg/dL (8.5-10.1); Carbon Dioxide 25.8 mMol/L (20.0-31.0); Chloride 107 mMol/L (98-107); Creatinine (Component) 0.7 mg/dL (0.6-1.3); Estimated Creatinine Clearance 78.7 mL/min (>60); Globulin 2.7 gm/dL (2.3-3.5); Glucose 95 mg/dL (74-106); Osmolality,Calculated 283 (275-295); Potassium 3.9 mMol/L (3.4-5.1); Sodium 143 mMol/L (136-145); Total Protein 6.8 gm/dL (5.7-8.2); eGFR > 60 See Note
[2024-12-07 08:00] VITALS: BP 133/84; PULSE 60; PULSE 97; RESP 13; TEMP 36.6; O2SAT 98
[2024-12-07] MEDS: ASPIRIN EC 81 MG TABEC PO (08:18)
--- NOTE | 2024-12-07 09:18 | PC.SS ---
rounding note: SS attempted to see patient this morning. However, patient was discharged early.
--- NOTE | 2024-12-07 09:27 | ESDS_ITS ---
<Statement entered by Benedict Ambrocio MD - 12/07/24 11:21> I have reviewed the note and agree with the resident's assessment & plan with exceptions as below. I have personally reviewed labs, imaging, home meds/prior records, examined the patient, formulated and discussed management plan with my attending Patient was seen and evaluated bedside this morning. No acute overnight events. Patient was seen by neurology last night and was told he could be discharged with statin and aspirin at this time. Discharge the patient this morning she was able to be discharged. Echo results were given to the patient. It was stated to her that she had another TIA she would possibly need a DAPHNEY. Benedict Ambrocio PGY2 Disclaimer: Even though this this note was dictated by speech recognition and even though it was carefully revised there may still be minor errors in crop farm helper due to voice recognition software. Planned Discharge Date 12/07/24 DS: Providers Provider Date of admission: 12/05/24 16:16 Primary care physician: Cornelio Ivey MD Admitting Provider: Christiano Rodriguez DO Attending Provider on Admission: Christiano Rodriguez DO Consults: 12/05/24 13:03 Consult to Neurology / Tele-Neurology Routine Comment: Consulting Provider: [facility] 12/05/24 16:39 Referral Physical Therapy Routine Comment: Physician Instructions: Referral Speech Therapy Routine Comment: 12/06/24 07:50 Consult to Neurology / Tele-Neurology Routine Comment: Consulting Provider: Navneet Caldwell Attending Provider on DC: Christiano Rodriguez DO Discharging Provider: Armani Sanders DO Anticipated date of discharge: 12/07/24 DS: Diagnosis Problem List Completed Was Problem List Reviewed/Reconciled?: Yes Hospital Course Hospital Course Hospital course: Reason for hospitalization: TIA Summary: This patient is a 69-year-old female with a past medical history of colon cancer who presented to [facility] ED on 12/05 with new onset slurred speech and right arm weakness and was admitted for management of TIA. The patient was [facility] cancer center and was getting a washout from her Port-A-Cath when she noted that she had sudden onset slurred speech and right arm weakness. The episode was transient and lasted for less than a minute. In the ED, 1 teleneurology was consulted, NIHSS scale was 0, CT head and CTA head/neck was negative for acute processes. MRI head with MRA performed 12/05 was negative for acute infarct. In house neurology was consulted, and recommended starting the patient on atorvastatin 80 mg nightly and aspirin 81 mg daily given suspicion for TIA and hypercholesterolemia given abnormal lipid panel. Echocardiogram was taken on 12/05 for stroke protocol, and was unable to rule out PFO or ASD given suboptimal bubble study, approximate ejection fraction 55 to 60% with stage I diastolic dysfunction. The patient was originally planned to be discharged on 12/06, however the patient wanted to discuss with neurology before for discharge. Neurology discussed with the patient on 12/06 towards the evening, and so the patient was discharged on 12/07 to home with self-care given lack of any symptoms on discharge. Patient was advised to continue atorvastatin and aspirin as well as to follow-up with outpatient neurology and her PCP for further care. Discharge Recommendations: - Please follow-up with outpatient neurology, Dr Caldwell, within 2 weeks of discharge for further management of your transient ischemic attack - Please take atorvastatin 80 mg nightly and aspirin 81 mg daily to minimize risk of future TIAs and strokes - Please also take coenzyme Q 10 daily - Follow up with PCP within 1 week of discharge - Continue rest of medications as previously prescribed - Return to the ED or call EMS if symptoms return and/or worsen If you don't have a PCP, you can make an appointment at the [facility]: [address] [place] [address] Hospital Diagnoses: #TIA, slurred speech and right arm numbness, resolved #History of colon cancer stage IV #History of hearing loss Patient plan of care was discussed with the senior resident Dr. Ambrocio (PGY-2) and attending physician Dr. Michael Sanders, PGY-1 Time Spent with Patient Time attestation: Total time spent providing and/or coordinating discharge services: Time spent: Greater than 30 minutes Exam Vital Signs Temp Pulse Resp BP Pulse Ox O2 Del Method 97.8 F 60 13 133/84 H 98 Room Air 12/07/24 08:00 12/07/24 08:00 12/07/24 08:00 12/07/24 08:00 12/07/24 08:00 12/07/24 08:00 Narrative Exam Physical Exam: General: Alert, no acute distress. Skin: Warm, dry, intact. Head: Normocephalic, atraumatic. Eye: Normal conjunctiva, PERRL. Throat: Oral mucosa moist. No obvious lesions in oropharynx. Cardiovascular: Regular rate and rhythm, no murmur, +S1/S2. Respiratory: Lungs are clear to auscultation, respirations unlabored, no crackles, no wheezing. Gastrointestinal: Soft, nontender, non-distended. No guarding or rebound tenderness. Extremities: No edema, no cyanosis, no clubbing. 2+ radial pulse bilaterally, 2+ pedal pulse bilaterally. Neuro: No focal deficits observed. Conversant, moving all extremities. No overt cerebellar signs/incoordination. Psychiatric: Cooperative, appropriate affect. Discharge Plan Plan Patient Disposition: HOME (Self Care) Care Plan Goals: Follow-up primary care physician within 2 or 3 days upon discharge Please follow-up with neurology within 7 days upon discharge You have been started on aspirin 81 mg daily You have been started on atorvastatin 80 mg daily along with co-Q10 Please come back to the ED if symptoms persist or worsen. Prescriptions/Referrals Prescriptions/Med Rec: New aspirin 81 mg Tablet,Delayed Release (Dr/Ec) 81 mg PO QDAY 30 Days Qty: 30 0RF atorvastatin [Lipitor] 80 mg tablet 80 mg PO QPM Qty: 30 0RF coenzyme Q10 [CoQ-10] 100 mg capsule 100 mg PO QDAY Qty: 30 0RF Continued docusate sodium 100 mg Capsule 100 mg PO BID Qty: 60 0RF Referrals: [facility]elio Ivey([facility] Julio [Primary Care Provider, Family Practice] Navneet Caldwell MD [Physician, Neurology] Patient/Caregiver Discharge Instructions Other Discharge Diet Instructions: Follow-up primary care physician within 2 or 3 days upon discharge Please follow-up with neurology within 7 days upon discharge You have been started on aspirin 81 mg daily You have been started on atorvastatin 80 mg daily along with co-Q10 Please come back to the ED if symptoms persist or worsen. Education Materials: What Is a TIA?, Anatomy of the Brain Print Language: Cambodian Stand Alone Forms: Aisha Award Info., Patient Portal Info Letter Discharge Order Discharge Orders: Discharge (Routine); Ordered 12/07/24 Ordered By: Benedict Ambrocio Quality Discharge Quality Measures VTE prophylaxis and stroke Statin ordered >75 y/o:moderate or high intensity dose on DC: n/a Statin ordered <75 y/o: high intensity dose on DC: yes Statin not ordered due to:: not indicated (Atorvastatin 80 mg nightly was ordered) Anticoagulation ordered for A-fib or flutter (current or hx): not indicated Antithrombotic ordered on DC: not indicated (describe) (TIA) MD Attestestation MD Attestation I have discussed and was present for the essential components of the discharge history, physical examination, diagnosis, and discharge treatment plan with the resident. I agree with the patient's discharge care as documented by the resident and amended herein by me. Hernesto Rodriguez DO. The patient understood all discharge instructions, all questions were answered satisfactorily. The patient was instructed to return to the Emergency Department is symptoms worsened or persisted. Although this document has been carefully reviewed, there may still be some phonetic and other typographical errors. These errors are purely grammatical due to imperfections in the software program and should not be construed in any way to compromise the substance of the patient's medical care during this visit. Time Spent on discharge: 31 minutes
== END 2024-12-07 09:06 | disposition home or self-care (01) | DRG 69 ==
LOC: SERX 15:47 → SERHOLD 16:45 → S2NX 18:22
PROVIDERS: Admitting Provider Student in an Organized Health Care Education/Training Program; Emergency Provider Family Medicine; PCP Family Medicine; Visit Provider Student in an Organized Health Care Education/Training Program
DX: G45.9 Transient cerebral ischemic attack, unspecified (principal); R47.81 Slurred speech; Z85.038 Personal history of other malignant neoplasm of large intestine; Z93.3 Colostomy status; F12.90 Cannabis use, unspecified, uncomplicated; H91.90 Unspecified hearing loss, unspecified ear; E78.00 Pure hypercholesterolemia, unspecified; Z79.82 Long term (current) use of aspirin; Z79.899 Other long term (current) drug therapy; Z87.891 Personal history of nicotine dependence; Z90.710 Acquired absence of both cervix and uterus
CPT/HCPCS: 36415; 70450; 70496; 70498; 70544; 71045; 80053; 80061; 80307; 81001; 83036; 83735; 84100; 84443; 84484; 85025; 85610; 85730; 92610; 93005; 93306; 96372; 97161; 99283; A4649; J1644; J7030; Q9967; A9270

== ENCOUNTER → 2025-01-25 | Outpatient (CLI) | payer MEDICARE, OTHER, SELFPAY ==
[2025-01-25 11:41] LABS: Basophils # (Auto) 0.0 Thou/mm3 (0.0-0.2); Basophils % (Auto) 1 % (0-2.5); Eosinophils # (Auto) 0.1 Thou/mm3 (0.0-0.5); Eosinophils % (Auto) 1 % (0-10); Hematocrit 43.0 % (36.0-46.0); Hemoglobin 14.2 g/dL (12.0-16.0); Immature Granulocytes Auto 0.02 Thou/mm3 (0.00-0.00); Lymphocytes # (Auto) 1.2 Thou/mm3 (1.0-4.8); Lymphocytes % (Auto) 26 % (10-50); Mean Corpuscular HGB Conc 33.0 g/dl (31.0-37.0); Mean Corpuscular Hemoglobin 28.8 pg (25.0-35.0); Mean Corpuscular Volume 87 fL (80-100); Monocytes # (Auto) 0.4 Thou/mm3 (0.0-0.8); Monocytes % (Auto) 9 % (0-12); Neutrophils # (Auto) 2.9 Thou/mm3 (1.8-7.7); Neutrophils % (Auto) 62 % (37-80); Nucleated Red Blood Cell # 0.00 Thou/mm3 (0.00-0.00); Nucleated Red Blood Cell % 0 /100 WBC (0); Platelet Count 234 Thou/mm3 (140-440); RDW Standard Deviation 41.4 fL (36.4-46.3); Red Blood Count 4.93 Miln/mm3 (4.00-5.20); White Blood Count 4.7 Thou/mm3 (3.6-11.0)
[2025-01-25 12:15] LABS: Glucose Estimated Average 114 mg/dL (80-131); Hemoglobin A1C 5.6 % Hgb (4.8-6.0)
[2025-01-25 12:23] LABS: Iron 36 mcg/dL (50-170); Percent Iron Saturation 12 % (20-55); Total Iron Binding Capacity 300 mcg/dL (250-425); Unsaturated Iron Binding 264 (225-295)
[2025-01-25 12:26] LABS: Alanine Aminotransferase 17 U/L (10-49); Albumin, Serum 5.1 gm/dL (3.4-4.8); Albumin/Globulin Ratio 1.7 (1.2-2.2); Alkaline Phosphatase 84 U/L (46-116); Anion Gap 10 (7-16); Aspartate Amino Transferase 21 U/L (0-34); BUN/Creatinine Ratio 9 Ratio (12-20); Bilirubin,Total 0.4 mg/dL (0.3-1.2); Blood Urea Nitrogen 9 mg/dL (9-23); Calcium 9.5 mg/dL (8.3-10.6); Calcium (Corrected) 9.5 mg/dL (8.5-10.1); Carbon Dioxide 25.6 mMol/L (20.0-31.0); Cardiac Risk Estimate 3.2 RATIO (3.7-5.6); Chloride 106 mMol/L (98-107); Cholesterol 206 mg/dL (132-200); Creatinine (Component) 1.0 mg/dL (0.6-1.3); Free T3 2.9 pg/mL (2.3-4.2); Free T4 (Free Thyroxine) 1.36 ng/dL (0.89-1.76); Globulin 3.0 gm/dL (2.3-3.5); Glucose 122 mg/dL (74-106); HDL Cholesterol 64 mg/dL (40-60); LDL Cholesterol,Calculated 107 mg/dL (0-130); Osmolality,Calculated 282 (275-295); Potassium 3.7 mMol/L (3.4-5.1); Sodium 142 mMol/L (136-145); Thyroid Stimulating Hormone 1.02 uIU/mL (0.55-4.78); Total Protein 8.1 gm/dL (5.7-8.2); Triglycerides 174 mg/dL (30-150); eGFR > 60 See Note
[2025-01-25 12:32] LABS: Collection Type, Urine Clean Catch
[2025-01-25 12:52] LABS: Vitamin B12 1686 pg/mL (211-911); Vitamin D 25 Hydroxy Total 32.2 ng/mL (7.3-40.2)
[2025-01-25 13:08] LABS: Bilirubin,Urine Negative (Negative); Blood,Urine Negative (Negative); Clarity,Urine Clear (Clear/Hazy); Color,Urine Yellow (Lt Yel-Yel); Glucose, Urine Negative (Negative); Ketones,Urine Trace (Negative); Leukocyte Esterase,Urine Negative (Negative); Nitrite,Urine Negative (Negative); PH,Urine 5.5 (5.0-7.0); Protein,Urine Trace (Neg - Trace); RBC,Urine 4 /hpf (0-3); Specific Gravity,Urine 1.030 (1.001-1.035); Squamous Epithelial Cell,Urine < 1 /hpf (0-5); Urobilinogen,Urine 2.0 mg/dL (0.0-1.0); WBC,Urine 1 /hpf (0-5)
[2025-01-25 13:46] LABS: Folate > 24.00 ng/mL (>5.38)
== END | disposition home or self-care (01) ==
LOC: COPL 10:41
PROVIDERS: PCP Family Medicine; Referring Provider Nurse Practitioner; Visit Provider Nurse Practitioner
DX: E78.5 Hyperlipidemia, unspecified (principal); R53.83 Other fatigue; Z13.1 Encounter for screening for diabetes mellitus
CPT/HCPCS: 36415; 80053; 80061; 81001; 82306; 82607; 82746; 83036; 83540; 83550; 84439; 84443; 84481; 85025

== ENCOUNTER → 2025-02-21 | Outpatient (CLI) | payer MEDICARE, OTHER, SELFPAY ==
--- NOTE | 2025-02-21 11:30 | XR_ITS ---
Examination: Breast ultrasound complete, bilateral Date and time of exam: February 21, 2025, 1135 hours INDICATIONS: Right breast pain 9 o'clock position 1 year Technique: Real-time grayscale ultrasonographic imaging bilateral breasts, including all 4 quadrants as well as nipple retroareolar and axillary regions. Findings: No cystic or solid mass involving either breast IMPRESSION: BI-RADS Category 1: Negative studies
== END | disposition home or self-care (01) ==
PROVIDERS: PCP Internal Medicine; Referring Provider Nurse Practitioner; Visit Provider Nurse Practitioner
DX: N64.4 Mastodynia (principal)
CPT/HCPCS: 76641